=== PATIENT | female | born 1965 | race Caucasian/White ===

== ENCOUNTER 2018-02-02 17:11 | Inpatient (IN) | payer BC ==
--- NOTE | 2018-02-02 17:39 | PDOC ---
History of Present Illness - General History Source: Patient Exam Limitations: No Limitations <Mikey Ma - Last Filed: 02/02/18 17:51> <Subhash Myaa - Last Filed: 02/02/18 23:48> - General Chief Complaint: Chest Pain Stated Complaint: CHEST PAIN Time Seen by Provider: 02/02/18 17:39 - History of Present Illness Initial Comments: 02/02/18 17:51 The patient is a 52 year old female, with a significant past medical history of PTSD, GERD, Hernia, Right sided breast CA s/p lumpectomy, who presents to the ED complaining of chest pain since last night. She describes her chest pain as a stabbing sensation, 8/10 in severity. She denies any radiation or modifying factors. She also reports a dry cough and mild chills associated with her chief complaint. She notes that she took Tylenol today around 12pm. The patient denies shortness of breath, headache and dizziness. Denies fever, nausea, vomiting, diarrhea or constipation. Allergies: None Past surgical history: Right lumpectomy, hysterectomy Social History: No alcohol, tobacco or drug use reported (Mikey Ma) Past History <Mikey aM - Last Filed: 02/02/18 17:51> - Past Medical History Cancer: Yes (RT BREAST CA) CVA: No COPD: No DVT: No GI Disorders: Yes (GERD/HIATAL HERNIA) Psychiatric Problems: Yes (PSTD) - Immunization History Immunization Up to Date: No - Suicide/Smoking/Psychosocial Hx Smoking History: Unknown if ever smoked Have you smoked in the past 12 months: No Information on smoking cessation initiated: No Hx Alcohol Use: No Drug/Substance Use Hx: No Substance Use Type: None <Subhash Maya - Last Filed: 02/02/18 23:48> - Past Medical History Allergies/Adverse Reactions: Allergies Allergy/AdvReac Type Severity Reaction Status Date / Time No Known Allergies Allergy Verified 02/02/18 19:11 Home Medications: Ambulatory Orders NK [No Known Home Medication] 02/02/18 Review of Systems - Review of Systems Able to Perform ROS?: Yes <Mikey Ma - Last Filed: 02/02/18 17:51> <Subhash Maya - Last Filed: 02/02/18 23:48> - Review of Systems Comments:: 02/02/18 17:51 CONSTITUTIONAL: (+) Chills. No fever, no fatigue EYES: No visual changes ENT: No ear pain, no sore throat CARDIOVASCULAR: (+) Chest pain. No palpitations RESPIRATORY: (+) Cough. No SOB GI: No abdominal pain, no nausea, no vomiting, no constipation, no diarrhea GENITOURINARY: No dysuria, no frequency, no hematuria MUSKULOSKELETAL: No backpain, no joint pain, no myalgias SKIN: No rash NEURO: No headache (Mikey Ma) *Physical Exam <Mikey Ma - Last Filed: 02/02/18 17:51> <Subhash Maya - Last Filed: 02/02/18 23:48> - Vital Signs Last Vital Signs Temp Pulse Resp BP Pulse Ox 99.9 F H 80 18 129/76 100 02/02/18 17:20 02/02/18 18:54 02/02/18 18:54 02/02/18 18:54 02/02/18 18:54 - Physical Exam Comments: 02/02/18 17:51 CONSTITUTIONAL: Well-appearing; well-nourished; in no apparent distress HEAD: Normocephalic; atraumatic EYES: PERRL; EOM intact ENMT: External appears normal; normal oropharynx NECK: Supple; non-tender; no cervical lymphadenopathy CARD: Normal S1, S2; no murmurs, rubs, or gallops RESP: Normal chest excursion with respiration; breath sounds clear and equal bilaterally; no wheezes, rhonchi, or rales ABD: Soft, non-distended; non-tender; no palpable organomegaly, no palpable hernias EXT: Normal ROM in all four extremities; non-tender to palpation; distal pulses intact SKIN: Warm, dry, no rash NEURO: No focal neurological deficiencies. (Mikey Ma) Heart Score/ECG Review - History History: Slightly suspicious - Electrocardiogram EKG: Normal - Age Age: 45-65 - Risk Factors Based on the list above the patient has:: 1-2 risk factors - Troponin Troponin: </= normal limit - Score Heart Score - Total: 2 <Subhash aMya - Last Filed: 02/02/18 23:48> ED Treatment Course - LABORATORY CBC & Chemistry Diagram: 02/02/18 18:50 02/02/18 18:50 <Subhash Maya - Last Filed: 02/02/18 23:48> - ADDITIONAL ORDERS Additional order review: Laboratory Results 02/02/18 02/02/18 18:50 18:50 PT with INR 12.60 INR 1.12 H Sodium 141 Potassium 3.6 Chloride 102 Carbon Dioxide 32 Anion Gap 7 L BUN 15 Creatinine 0.9 Creat Clearance w eGFR > 60 Random Glucose 100 Calcium 9.2 Total Bilirubin 0.5 AST 16 ALT 28 Alkaline Phosphatase 63 Creatine Kinase 69 Troponin I < 0.02 Total Protein 8.2 Albumin 3.7 02/02/18 18:50 RBC 3.63 MCV 96.3 H MCHC 34.3 RDW 13.8 MPV 9.0 Neutrophils % 52.5 Lymphocytes % 33.9 Monocytes % 11.9 H Eosinophils % 1.5 Basophils % 0.2 - RADIOLOGY Radiology Studies Ordered: Category Date Time Status CHEST X-RAY PORTABLE* [RAD] Stat Radiology 02/02/18 17:52 Completed - Medications Given in the ED: ED Medications Discontinued Medications Generic Name Dose Route Start Last Admin Trade Name Freq PRN Reason Stop Dose Admin Al Hydroxide/Mg Hydroxide 30 ml 02/02/18 17:54 02/02/18 18:15 Mylanta Suspension - PO 02/02/18 17:55 30 ml ONCE ONE Administration Aspirin 162 mg 02/02/18 17:54 02/02/18 18:15 Asa - PO 02/02/18 17:55 162 mg ONCE ONE Administration Famotidine/Sodium Chloride 20 mg in 50 mls @ 100 mls/hr 02/02/18 17:54 18:53 Pepcid 20 Mg Premixed Ivpb - IVPB 02/02/18 18:23 100 mls/hr ONCE ONE Administration Nitroglycerin 0.4 mg 02/02/18 17:54 02/02/18 18:15 Nitrostat - SL 02/02/18 17:55 0.4 mg ONCE ONE Administration Nitroglycerin 1 inch 02/02/18 22:11 02/02/18 22:57 Nitro-Bid 2% Paste - TD 02/02/18 22:12 1 inch ONCE ONE Administration Medical Decision Making <Mikey Ma - Last Filed: 02/02/18 17:51> <Subhash Maya - Last Filed: 02/02/18 23:48> - Medical Decision Making 02/02/18 23:47 52-year-old female with history of breast CA in the past, presents with atypical chest pain. EKG shows no evidence of acute ischemia. First set of cardiac enzymes within normal limit. Heart score is noted to be 2. Given low probability for outpatient follow-up. Will place in observation for serial cardiac enzymes and cardiology consultation. (Subhash Maya) *DC/Admit/Observation/Transfer <Mikey Ma - Last Filed: 02/02/18 17:51> - Discharge Dispostion Decision to Admit order: Yes <Subhash Maya - Last Filed: 02/02/18 23:48> Diagnosis at time of Disposition: Chest pain Qualifiers: Chest pain type: unspecified Qualified Code(s): R07.9 - Chest pain, unspecified - Discharge Dispostion Condition at time of disposition: Fair - Attestations Scribe Attestion: 02/02/18 17:51 Documentation prepared by Mikey Ma, acting as medical registrar for Subhash Maya MD (Mikey Ma)
[2018-02-02] MEDS ORDERED: FAMOTIDINE 20 MG/50 ML IVPB 20 MG/50 ML MG IVPB ONE (17:54)
[2018-02-02] MEDS ORDERED: NITROGLYCERIN SUBLINGUAL 1/150 0.4 MG TAB SL ONE (17:54)
[2018-02-02] MEDS ORDERED: ASPIRIN 81 MG CHEWABLE TABLETS PO ONE (17:54)
[2018-02-02] MEDS ORDERED: MAG HYDROX/AL HYDROX/SIMETH -MYLANTA- ORAL SUSPENSION PO ONE (17:54)
[2018-02-02] MEDS ORDERED: MAG HYDROX/AL HYDROX/SIMETH 30 ML UNIT-DOSE CUP ONE (18:10)
[2018-02-02 19:18] LABS: INR 1.12 (0.83-1.09); PROTHROMBIN TIME (PATIENT) 12.6 SEC (9.7-13.0)
[2018-02-02 19:28] LABS: ALBUMIN 3.7 g/dl (3.4-5.0); ANION GAP 7 (8-16); BILIRUBIN,TOTAL 0.5 mg/dL (0.2-1.0); BLOOD UREA NITROGEN 15 mg/dL (7-18); CALCIUM 9.2 mg/dL (8.5-10.1); CHLORIDE 102 mmol/L (98-107); CO2 32 mmol/L (21-32); CREATININE 0.9 mg/dL (0.55-1.02); GLUCOSE,RANDOM 100 mg/dL (74-106); POTASSIUM 3.6 mmol/L (3.5-5.1); SGOT/AST 16 U/L (15-37); SGPT/ALT 28 U/L (12-78); SODIUM 141 mmol/L (136-145); TOT PROT 8.2 g/dl (6.4-8.2)
[2018-02-02 19:31] LABS: ALK PHOS 63 U/L (45-117)
[2018-02-02 19:46] LABS: BASO % 0.2 % (0-2.0); EOS % 1.5 % (0-4.5); HEMATOCRIT 34.9 % (32.4-45.2); LYMPH % 33.9 % (8-40); MCHC 34.3 g/dl (32.0-36.0); MEAN CELL VOLUME 96.3 fl (80-96); MONO % 11.9 % (3.8-10.2); NEUT % 52.5 % (42.8-82.8); PLATELET COUNT 242 K/MM3 (134-434); RBC 3.63 M/mm3 (3.60-5.2); RDW 13.8 % (11.6-15.6); WHITE BLOOD COUNT 6.9 K/mm3 (4.0-10.0)
--- NOTE | 2018-02-02 21:42 | CON.CARD ---
Consult Consult Specialty:: Cardiology Reason for Consultation:: cp - History of Present Illness History of Present Illness: The patient is a 52 year old female, with a significant past medical history of PTSD, GERD, Hernia, Right sided breast CA s/p lumpectomy, who presents to the ED complaining of chest pain since last night. She describes her chest pain as a stabbing sensation, 8/10 in severity. She denies any radiation or modifying factors. She also reports a dry cough and mild chills associated with her chief complaint. She notes that she took Tylenol today around 12pm. The patient denies shortness of breath, headache and dizziness. Denies fever, nausea, vomiting, diarrhea or constipation. Allergies: None Past surgical history: Right lumpectomy, hysterectomy Social History: No alcohol, tobacco or drug use reported (Mikey Ma) - History Source History Provided By: Patient, Medical Record - Alcohol/Substance Use Hx Alcohol Use: No - Smoking History Smoking history: Unknown if ever smoked Have you smoked in the past 12 months: No Home Medications - Allergies Allergies/Adverse Reactions: Allergies Allergy/AdvReac Type Severity Reaction Status Date / Time No Known Allergies Allergy Verified 02/02/18 19:11 - Home Medications Home Medications: Ambulatory Orders NK [No Known Home Medication] 02/02/18 Review of Systems - Review of Systems Constitutional: reports: No Symptoms Eyes: reports: No Symptoms HENT: reports: No Symptoms Neck: reports: No Symptoms Cardiovascular: reports: Chest Pain Gastrointestinal: reports: No Symptoms Genitourinary: reports: No Symptoms Breasts: reports: No Symptoms Reported Musculoskeletal: reports: No Symptoms Integumentary: reports: No Symptoms Neurological: reports: No Symptoms Endocrine: reports: No Symptoms Hematology/Lymphatic: reports: No Symptoms Psychiatric: reports: No Symptoms Vital Signs: Vital Signs Temperature 99.9 F H 02/02/18 17:20 Pulse Rate 80 02/02/18 18:54 Respiratory Rate 18 02/02/18 18:54 Blood Pressure 129/76 02/02/18 18:54 O2 Sat by Pulse Oximetry (%) 100 02/02/18 18:54 Constitutional: Yes: Well Nourished, No Distress, Calm Eyes: Yes: WNL, Conjunctiva Clear, EOM Intact HENT: Yes: WNL, Atraumatic, Normocephalic Neck: Yes: WNL, Supple, Trachea Midline Respiratory: Yes: WNL, Regular, CTA Bilaterally Gastrointestinal: Yes: WNL, Normal Bowel Sounds Renal/: Yes: WNL Cardiovascular: Yes: WNL, Regular Rate and Rhythm Musculoskeletal: Yes: WNL Extremities: Yes: WNL Integumentary: Yes: WNL Neurological: Yes: WNL, Alert, Oriented ...Motor Strength: WNL Psychiatric: Yes: WNL, Alert, Oriented - Other Data Labs, Other Data: CBC, BMP 02/02/18 18:50 02/02/18 18:50 INR, PTT INR 1.12 (0.83-1.09) H 02/02/18 18:50 Troponin, BNP 02/02/18 18:50 Troponin I < 0.02 Troponin, BNP 02/02/18 18:50 Troponin I < 0.02 Imaging - Results Chest X-ray: Image Reviewed (cm increased markings ?weak inspiration) EKG: Image Reviewed (nsr ? old ant septal HI) Problem List - Problems (1) Atelectasis Code(s): J98.11 - ATELECTASIS (2) Atypical chest pain Code(s): R07.89 - OTHER CHEST PAIN (3) Chest pain Code(s): R07.9 - CHEST PAIN, UNSPECIFIED Qualifiers: Chest pain type: unspecified Qualified Code(s): R07.9 - Chest pain, unspecified Assessment/Plan Atypical Chest Pain Bibasilar Atelectasis h/o Breast Ca GERD Hiatal Hernia r/o mi echo nl EST treadmill stress test when stable
[2018-02-02] MEDS ORDERED: NITROGLYCERIN 2% OINTMENT - 1GM PACKET TD ONE ×2 (22:11→22:38)
--- NOTE | 2018-02-03 00:16 | HP ---
CHIEF COMPLAINT: chest pain PCP: HISTORY OF PRESENT ILLNESS: 52 yo female with PMH Hiatal hernia, GERD, R breast cancer s/p lumpectomy followed by R radical mastectomy and tram flap, presented to the ED with 1 day of stabbing chest pain which radiates up into her neck on the right. she also endorses chills, and recent URI symptoms including cough. ER course was notable for: (1) Trop neg. ECG shows no acute infarct (2) CXR with central markings, bibasilar scarring vs atelectasis, unspecified density in RUL (3) Cardiology consulted Recent Travel: none PAST MEDICAL HISTORY: Hiatal hernia GERD R breast cancer - remission for 19 years PAST SURGICAL HISTORY: R lumpectomy R Mastectomy R Tram-flap Social History: Smoking: none Alcohol: none Drugs: none Family History: Allergies No Known Allergies Allergy (Verified 02/02/18 19:11) HOME MEDICATIONS: Home Medications Medication Instructions Recorded NK [No Known Home Medication] 02/02/18 REVIEW OF SYSTEMS CONSTITUTIONAL: chills Absent: fever, , diaphoresis, generalized weakness, malaise, loss of appetite, weight change HEENT: Absent: rhinorrhea, nasal congestion, throat pain, throat swelling, difficulty swallowing, mouth swelling, ear pain, eye pain, visual changes CARDIOVASCULAR: chest pain, Absent: syncope, palpitations, irregular heart rate, lightheadedness, peripheral edema RESPIRATORY: cough, shortness of breath Absent: , dyspnea with exertion, orthopnea, wheezing, stridor, hemoptysis GASTROINTESTINAL: Absent: abdominal pain, abdominal distension, nausea, vomiting, diarrhea, constipation, melena, hematochezia GENITOURINARY: Absent: dysuria, frequency, urgency, hesitancy, hematuria, flank pain, genital pain MUSCULOSKELETAL: Absent: myalgia, arthralgia, joint swelling, back pain, neck pain SKIN: Absent: rash, itching, pallor HEMATOLOGIC/IMMUNOLOGIC: Absent: easy bleeding, easy bruising, lymphadenopathy, frequent infections ENDOCRINE: Absent: unexplained weight gain, unexplained weight loss, heat intolerance, cold intolerance NEUROLOGIC: Absent: headache, focal weakness or paresthesias, dizziness, unsteady gait, seizure, mental status changes, bladder or bowel incontinence PSYCHIATRIC: Absent: anxiety, depression, suicidal or homicidal ideation, hallucinations. PHYSICAL EXAMINATION Vital Signs - 24 hr 02/02/18 02/02/1802/02/18 17:20 18:15 18:54 Temperature 99.9 F H Pulse Rate 82 Pulse Rate [ 82 80 Apical] Respiratory 17 16 18 Rate Blood Pressure 128/69 Blood Pressure 137/84 129/76 [Left Arm] O2 Sat by Pulse 97 100 100 Oximetry (%) GENERAL: Awake, alert, and fully oriented, in no acute distress. HEAD: Normal with no signs of trauma. EYES: PERRL, EOMI, no scleral icterus EARS, NOSE, THROAT: oropharynx clear without exudates. Moist mucous membranes. NECK: Normal range of motion, supple without lymphadenopathy, JVD, or masses. LUNGS: CTA b/l no rhonchi or crackles HEART: RRR no murmurs normal S1S2 ABDOMEN: soft nontender, normoactive bowel sounds MUSCULOSKELETAL: Chest pain is not reproducible on exam, though pt still complaining of pain UPPER EXTREMITIES: warm, well-perfused. No cyanosis. No clubbing. No peripheral edema. LOWER EXTREMITIES: warm, well-perfused. No calf tenderness. No peripheral edema. NEUROLOGICAL: Cranial nerves II-XII grossly intact. Normal speech. PSYCHIATRIC: Cooperative. Good eye contact. Appropriate mood and affect. SKIN: Warm, dry, normal turgor, no rashes or lesions noted, normal capillary refill. Laboratory Results - last 24 hr 02/02/18 02/02/18 02/02/18 18:50 18:50 18:50 WBC 6.9 RBC 3.63 Hgb 12.0 Hct 34.9 MCV 96.3 H MCH 33.0 MCHC 34.3 RDW 13.8 Plt Count 242 MPV 9.0 Absolute Neuts (auto) 3.6 Neutrophils % 52.5 Lymphocytes % 33.9 Monocytes % 11.9 H Eosinophils % 1.5 Basophils % 0.2 Nucleated RBC % 0 PT with INR 12.60 INR 1.12 H Sodium 141 Potassium 3.6 Chloride 102 Carbon Dioxide 32 Anion Gap 7 L BUN 15 Creatinine 0.9 Creat Clearance w eGFR > 60 Random Glucose 100 Calcium 9.2 Total Bilirubin 0.5 AST 16 ALT 28 Alkaline Phosphatase 63 Creatine Kinase 69 Troponin I < 0.02 Total Protein 8.2 Albumin 3.7 ASSESSMENT/PLAN: 52 yo female with PMH right breast CA s/p mastectomy (remission for 19 years) with Hiatal hernia and GERD placed into observation for r/o Cardiac event, GI consult for Hiatal hernia. Chest pain -Unlikely cardiac in nature -Could possibly be severe GERD sx with hx of hiatal hernia -Troponins negative -ECG noted, no acute infarcts -Observe with cardiac monitoring -Echo ordered -Cardiology consult ordered GERD/Hiatal Hernia -known hiatal hernia, pt considering repair -Diet modifications have not improved GERD symptoms -Pt not on PPI at home -Protonix 40 mg PO Daily -GI consult ordered Unspecified pulmonary density RUL -no smoking hx -Ddx could include pneumonia vs mass -Chest CT w/o contrast -Pulmonary consult ordered for [facility] follow up -Awaiting CT, if appears to be pneumonia will start Abx DVT Prophylaxis -Heparin 5000 units SQ TID FEN -Fluids: none -Electrolytes: K 3.6, repleted, repeat BMP in AM -Nutrition: Regular diet Disposition Observation Visit type - Emergency Visit Emergency Visit: Yes ED Registration Date: 02/02/18 Care time: The patient presented to the Emergency Department on the above date and was hospitalized for further evaluation of their emergent condition. - New Patient This patient is new to me today: Yes Date on this admission: 02/04/18 - Critical Care Critical Care patient: No Hospitalist Screening - Colonoscopy Questionnaire Colonoscopy Questionnaire: Colonoscopy Questionnaire - Patient: 50 - 75 years old and never had a screening colonoscopy: No History of colon or rectal polyps, or CA: No History of IBD, Crohn's disease or UC: No History of abdominal radiation therapy as a child: No - Relative: 1 with colon or rectal CA, or polyps at age 60 or younger: No Colon or rectal CA diagnosed at age 45 or younger: No Multiple relatives with colon or rectal CA: No - Outcome: Screening Result: Negative Screen
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
[2018-02-03] MEDS ORDERED: POTASSIUM CHLORIDE TABS 20 MEQ TABLET.ER (FP) PO ONE ×2 (01:22→02:07)
[2018-02-03 05:23] VITALS: BMI 34.3
[2018-02-03 06:43] LABS: HEMATOCRIT 30.8 % (32.4-45.2); HEMOGLOBIN 10.7 GM/dL (10.7-15.3); MCH 34.1 pg (25.7-33.7); MCHC 34.7 g/dl (32.0-36.0); MEAN CELL VOLUME 98.3 fl (80-96); MEAN PLT VOLUME 8.5 fl (7.5-11.1); PLATELET COUNT 194 K/MM3 (134-434); RBC 3.13 M/mm3 (3.60-5.2); RDW 14.2 % (11.6-15.6); WHITE BLOOD COUNT 5.7 K/mm3 (4.0-10.0)
[2018-02-03] MEDS: HEPARIN NA (PORCINE) 5,000 UNITS/ML 1ML VIAL SQ SCH ×3 (06:51→21:29)
[2018-02-03 07:11] LABS: ANION GAP 7 (8-16); BLOOD UREA NITROGEN 14 mg/dL (7-18); CHLORIDE 106 mmol/L (98-107); CO2 28 mmol/L (21-32); CREATININE 0.9 mg/dL (0.55-1.02); GLUCOSE,RANDOM 101 mg/dL (74-106); MAGNESIUM 2.4 mg/dL (1.8-2.4); PHOSPHOROUS 3.2 mg/dL (2.5-4.9); POTASSIUM 4.3 mmol/L (3.5-5.1); SODIUM 141 mmol/L (136-145)
--- NOTE | 2018-02-03 08:24 | PN ---
Teaching Attending Note Name of Resident: Hafsa Vitale ATTENDING PHYSICIAN STATEMENT I saw and evaluated the patient. I reviewed the resident's note and discussed the case with the resident. I agree with the resident's findings and plan as documented. SUBJECTIVE: The patient is a 52 year old female, with a significant past medical history of PTSD, GERD, Hernia, Right sided breast CA s/p lumpectomy, who presents to the ED complaining of chest pain 8/10 in severity , wiith stubbing sensations since last night. OBJECTIVE: Vital Signs Temperature 98.1 F 02/03/18 06:32 Pulse Rate 75 02/03/18 06:32 Respiratory Rate 18 02/03/18 06:32 Blood Pressure 113/69 02/03/18 06:32 O2 Sat by Pulse Oximetry (%) 95 02/03/18 03:30 CBCD WBC 5.7 K/mm3 (4.0-10.0) 02/03/18 05:30 RBC 3.13 M/mm3 (3.60-5.2) L 02/03/18 05:30 Hgb 10.7 GM/dL (10.7-15.3) 02/03/18 05:30 Hct 30.8 % (32.4-45.2) L 02/03/18 05:30 MCV 98.3 fl (80-96) H 02/03/18 05:30 MCHC 34.7 g/dl (32.0-36.0) 02/03/18 05:30 RDW 14.2 % (11.6-15.6) 02/03/18 05:30 Plt Count 194 K/MM3 (134-434) 02/03/18 05:30 MPV 8.5 fl (7.5-11.1) 02/03/18 05:30 CMP Sodium 141 mmol/L (136-145) 02/03/18 05:30 Potassium 4.3 mmol/L (3.5-5.1) 02/03/18 05:30 Chloride 106 mmol/L (98-107) 02/03/18 05:30 Carbon Dioxide 28 mmol/L (21-32) 02/03/18 05:30 Anion Gap 7 (8-16) L 02/03/18 05:30 BUN 14 mg/dL (7-18) 02/03/18 05:30 Creatinine 0.9 mg/dL (0.55-1.02) 02/03/18 05:30 Creat Clearance w eGFR > 60 (>60) 02/03/18 05:30 Random Glucose 101 mg/dL (74-106) 02/03/18 05:30 Calcium 9.0 mg/dL (8.5-10.1) 02/03/18 05:30 Total Bilirubin 0.5 mg/dL (0.2-1.0) 02/02/18 18:50 AST 16 U/L (15-37) 02/02/18 18:50 ALT 28 U/L (12-78) 02/02/18 18:50 Alkaline Phosphatase 63 U/L (45-117) 02/02/18 18:50 Total Protein 8.2 g/dl (6.4-8.2) 02/02/18 18:50 Albumin 3.7 g/dl (3.4-5.0) 02/02/18 18:50 CARDIAC ENZYMES Creatine Kinase 69 IU/L (26-192) 02/02/18 18:50 Troponin I < 0.02 ng/ml (0.00-0.05) 02/02/18 18:50 Current Medications Generic Name Dose Route Start Last Admin Trade Name Freq PRN Reason Stop Dose Admin Heparin Sodium (Porcine) 5,000 unit 02/03/18 06:00 02/03/18 06:51 Heparin - SQ 5,000 unit TID CARLI Administration Pantoprazole Sodium 40 mg 02/03/18 10:00 Protonix - PO DAILY [facility] Home Medications Medication Instructions Recorded NK [No Known Home Medication] 02/02/18 Laboratory Tests 02/02/18 02/03/18 18:50 05:30 Troponin I < 0.02 < 0.02 Chest: Good effort. Clear to auscultation and percussion. Heart: Regular. No S3, rub or murmur Rest of PE per resident's note ASSESSMENT AND PLAN: Patient is a 52 year old woman with PMHx PTSD, GERD, Hernia, Right sided breast CA s/p mastectomy (radio and chemotherapy), who presents to the ER complaining of chest pain for 1 day. # Acute Chest pain ACS was rulled out by CE q6x 2 were negative, cardio consult appreciated, EKG, echo ordered. will wait for echo result DVT prophylaxis - Heparin 5000u sq tid. Advance directives - Full code
[2018-02-03] MEDS: PANTOPRAZOLE 40 MG TABLET (FP) PO SCH (10:15)
--- NOTE | 2018-02-03 10:17 | PN ---
Progress Note, Physician History of Present Illness: The patient is a 52 year old female, with a significant past medical history of PTSD, GERD, Hernia, Right sided breast CA s/p lumpectomy, who presents to the ED complaining of chest pain since last night. She describes her chest pain as a stabbing sensation, 8/10 in severity. She denies any radiation or modifying factors. She also reports a dry cough and mild chills associated with her chief complaint. She notes that she took Tylenol today around 12pm. - Current Medication List Current Medications: Active Medications Heparin Sodium (Porcine) (Heparin -) 5,000 unit SQ TID [facility] Last Admin: 02/03/18 06:51 Dose: 5,000 unit Pantoprazole Sodium (Protonix -) 40 mg PO DAILY [facility] - Objective Vital Signs: Vital Signs Temperature 98.2 F 02/03/18 10:00 Pulse Rate 76 02/03/18 10:00 Respiratory Rate 14 02/03/18 10:00 Blood Pressure 126/60 02/03/18 10:00 O2 Sat by Pulse Oximetry (%) 95 02/03/18 03:30 Labs: CBC, BMP 02/03/18 05:30 02/03/18 05:30 INR, PTT INR 1.12 (0.83-1.09) H 02/02/18 18:50 Problem List - Problems (1) Atypical chest pain Code(s): R07.89 - OTHER CHEST PAIN
--- NOTE | 2018-02-03 10:27 | CON.GI ---
Consult Consult Specialty:: GI Reason for Consultation:: Atypical chest pain, GERD - History of Present Illness History of Present Illness: Chart reviewed. Events noted. per initial intake: Patient is a 52 year old woman with a past medical history of PTSD, GERD, Hernia, Right sided breast CA s/p mastectomy (radio and chemotherapy), who presents to the ER complaining of chest pain for 1 day. She describes her chest pain as a stabbing sensation, located in right parasternal area and 8/10 in severity. She denies any radiation or modifying factors but is exposed to second hand smoke. She also reports a dry cough, SOB, chills and pleurisy. No family history of premature CAD. Normal CBC, HGB, Liver chemistry, bili, alp, albumin. Normal BUN. Macrocytosis CT chest - negative for PE. "cannot rule out infiltrate". Pulmonary consult noted. At the timeofthis exam, the pt appears confortable. Ambulating. Reports no dysphagia, odynophagia, dyspepsia, fever, jaundice, melena, hematochezia, hematemesis, changes in stool caliper. Had EGD in 2009, cannot recall the findings, but reports no history of PUD, esopha gitis, or duodenitis. - History Source History Provided By: Patient, Medical Record - Alcohol/Substance Use Hx Alcohol Use: No - Smoking History Smoking history: Unknown if ever smoked Have you smoked in the past 12 months: No Home Medications - Allergies Allergies/Adverse Reactions: Allergies Allergy/AdvReac Type Severity Reaction Status Date / Time No Known Allergies Allergy Verified 02/02/18 19:11 - Home Medications Home Medications: Ambulatory Orders NK [No Known Home Medication] 02/02/18 Family Disease History - Family Disease History Family History: Unremarkable Review of Systems Findings/Remarks: as per HPI, ED, H&P Physical Exam-GI Vital Signs: Vital Signs Temperature 98.2 F 02/03/18 10:00 Pulse Rate 76 02/03/18 10:00 Respiratory Rate 14 02/03/18 10:00 Blood Pressure 126/60 02/03/18 10:00 O2 Sat by Pulse Oximetry (%) 95 02/03/18 03:30 Constitutional: Yes: Well Nourished, No Distress, Calm Eyes: Yes: Conjunctiva Clear HENT: Yes: Atraumatic Neck: Yes: Supple Cardiovascular: Yes: Regular Rate and Rhythm Respiratory: Yes: Regular Gastrointestinal Inspection: No: Ascites, Distention ...Auscultate: Yes: Normoactive Bowel Sounds ...Palpate: Yes: Soft. No: Firm/Rigid, Guarding, Mass, Tenderness, Tenderness, Epigastium, Tenderness, Rebound Neurological: Yes: Alert, Oriented Labs: CBC, BMP 02/03/18 05:30 02/03/18 05:30 INR, PTT INR 1.12 (0.83-1.09) H 02/02/18 18:50 Laboratory Last Values WBC 5.7 K/mm3 (4.0-10.0) 02/03/18 05:30 RBC 3.13 M/mm3 (3.60-5.2) L 02/03/18 05:30 Hgb 10.7 GM/dL (10.7-15.3) 02/03/18 05:30 Hct 30.8 % (32.4-45.2) L 02/03/18 05:30 MCV 98.3 fl (80-96) H 02/03/18 05:30 MCH 34.1 pg (25.7-33.7) H 02/03/18 05:30 MCHC 34.7 g/dl (32.0-36.0) 02/03/18 05:30 RDW 14.2 % (11.6-15.6) 02/03/18 05:30 Plt Count 194 K/MM3 (134-434) 02/03/18 05:30 MPV 8.5 fl (7.5-11.1) 02/03/18 05:30 Absolute Neuts (auto) 3.6 # 02/02/18 18:50 Neutrophils % 52.5 % (42.8-82.8) 02/02/18 18:50 Lymphocytes % 33.9 % (8-40) 02/02/18 18:50 Monocytes % 11.9 % (3.8-10.2) H 02/02/18 18:50 Eosinophils % 1.5 % (0-4.5) 02/02/18 18:50 Basophils % 0.2 % (0-2.0) 02/02/18 18:50 Nucleated RBC % 0 % (0-0) 02/02/18 18:50 PT with INR 12.60 SEC (9.7-13.0) 02/02/18 18:50 INR 1.12 (0.83-1.09) H 02/02/18 18:50 Sodium 141 mmol/L (136-145) 02/03/18 05:30 Potassium 4.3 mmol/L (3.5-5.1) 02/03/18 05:30 Chloride 106 mmol/L (98-107) 02/03/18 05:30 Carbon Dioxide 28 mmol/L (21-32) 02/03/18 05:30 Anion Gap 7 (8-16) L 02/03/18 05:30 BUN 14 mg/dL (7-18) 02/03/18 05:30 Creatinine 0.9 mg/dL (0.55-1.02) 02/03/18 05:30 Creat Clearance w eGFR > 60 (>60) 02/03/18 05:30 Random Glucose 101 mg/dL (74-106) 02/03/18 05:30 Calcium 9.0 mg/dL (8.5-10.1) 02/03/18 05:30 Phosphorus 3.2 mg/dL (2.5-4.9) 02/03/18 05:30 Magnesium 2.4 mg/dL (1.8-2.4) 02/03/18 05:30 Total Bilirubin 0.5 mg/dL (0.2-1.0) 02/02/18 18:50 AST 16 U/L (15-37) 02/02/18 18:50 ALT 28 U/L (12-78) 02/02/18 18:50 Alkaline Phosphatase 63 U/L (45-117) 02/02/18 18:50 Creatine Kinase 69 IU/L (26-192) 02/02/18 18:50 Troponin I < 0.02 ng/ml (0.00-0.05) 02/03/18 05:30 Total Protein 8.2 g/dl (6.4-8.2) 02/02/18 18:50 Albumin 3.7 g/dl (3.4-5.0) 02/02/18 18:50 Triglycerides Cancelled 02/03/18 10:55 Cholesterol Cancelled 02/03/18 10:55 Total LDL Cholesterol Cancelled 02/03/18 10:55 HDL Cholesterol Cancelled 08/02/18 10:55 TSH Cancelled 02/03/18 10:55 Imaging - Results X-ray: Report Reviewed Cat Scan: Report Reviewed (ct chest) Problem List - Problems (1) Atypical chest pain Code(s): R07.89 - OTHER CHEST PAIN Assessment/Plan A 52F with atypical chest pain which may be related to GERD, gastritis, PUD. Recommnd PPI PO QAM. Stop NSAIDs. US liver, EGD. Screening colonoscopy can be done as OP. Discussed with the patient.
[2018-02-03 11:22] LABS: CHOLESTEROL 145 mg/dL (50-200); TRIGLYCERIDES 146 mg/dL (35-160)
[2018-02-03 11:29] LABS: HDL CHOLESTEROL 37 mg/dL (40-60)
--- NOTE | 2018-02-03 11:56 | CON.PULM ---
Consult Consult Specialty:: PULMONARY Referred by:: Dr. Holt Reason for Consultation:: abnormal CXR - History of Present Illness Chief Complaint: chest pain History of Present Illness: 52yo female with h/o GERD, hiatal hernia, right breast ca s/p mastectomy who was admitted with anterior right parasternal chest pain x 1 day. States pain started at rest, described as sharp, stabbing nonradiating. Reports worse pain with deep inspiration and certain positions. No fevers, but with some chills. + nonproductive cough without wheezing. States the pain prohibits her from taking deep breaths. She denies any lung problems in the past, is a never smoker. Works with [employer], mostly office based and street work. Admission CXR showing possible RUL density but CT chest did not show any RUL abnormality but with bibasilar atelectasis. - History Source History Provided By: Patient, Medical Record - Past Medical History Gastrointestinal: Yes: GERD, Hiatal Hernia Heme/Onc: Yes: Cancer (right breast) - Past Surgical History Past Surgical History: Yes: Mastectomy (right) - Alcohol/Substance Use Hx Alcohol Use: No - Smoking History Smoking history: Unknown if ever smoked Have you smoked in the past 12 months: No Home Medications - Allergies Allergies/Adverse Reactions: Allergies Allergy/AdvReac Type Severity Reaction Status Date / Time No Known Allergies Allergy Verified 02/02/18 19:11 - Home Medications Home Medications: Ambulatory Orders NK [No Known Home Medication] 02/02/18 Review of Systems - Review of Systems Constitutional: reports: Chills, Weakness. denies: Fever Eyes: denies: Recent Change in Vision HENT: denies: Nasal Congestion, Throat Pain Neck: denies: Stiffness, Tenderness Cardiovascular: reports: Chest Pain, Shortness of Breath. denies: Edema, Palpitations Respiratory: reports: Cough, SOB. denies: Hemoptysis, Wheezing Gastrointestinal: denies: Abdominal Pain, Nausea, Vomiting Genitourinary: denies: Dysuria, Hematuria Neurological: denies: Dizziness, Headache Endocrine: denies: Unexplained Weight Loss Psychiatric: reports: Anxiety Physical Exam Vital Sings: Vital Signs Temperature 98.2 F 02/03/18 10:00 Pulse Rate 76 02/03/18 10:00 Respiratory Rate 14 02/03/18 10:00 Blood Pressure 126/60 02/03/18 10:00 O2 Sat by Pulse Oximetry (%) 95 02/03/18 03:30 Constitutional: Yes: Calm Eyes: Yes: Conjunctiva Clear, EOM Intact HENT: Yes: Atraumatic, Normocephalic Neck: Yes: Supple, Trachea Midline Cardiovascular: Yes: Regular Rate and Rhythm Respiratory: Yes: Regular, CTA Bilaterally ...Clubbing: No Gastrointestinal: Yes: Normal Bowel Sounds, Soft. No: Tenderness Edema: No Neurological: Yes: Alert, Oriented Labs: CBC, BMP 02/03/18 05:30 02/03/18 05:30 Imaging - Results Chest X-ray: Report Reviewed, Image Reviewed Cat Scan: Report Reviewed, Image Reviewed (bibasilar atelectasis) Problem List - Problems (1) Atypical chest pain Code(s): R07.89 - OTHER CHEST PAIN (2) Atelectasis Code(s): J98.11 - ATELECTASIS Assessment/Plan Atypical Chest Pain Bibasilar Atelectasis h/o Breast Ca GERD Hiatal Hernia - CXR findings not seen on CT chest - bibasilar atelectasis likely from splinting from chest pain - would start NSAIDs for chest pain - ?costochondritis - incentive spirometry - DVT prophylaxis Thank you for this consult Aris Loomis MD
[2018-02-03] MEDS ORDERED: NAPROXEN 500 MG TABLET (FP) PO SCH (12:00)
[2018-02-03] MEDS ORDERED: NAPROXEN 500 MG TABLET (FP) PO PRN (12:02)
--- NOTE | 2018-02-03 12:45 | EKG ---
Test Reason : Blood Pressure : / mmHG Vent. Rate : 080 BPM Atrial Rate : 080 BPM P-R Int : 180 ms QRS Dur : 086 ms QT Int : 376 ms P-R-T Axes : 030 -25 009 degrees QTc Int : 433 ms NORMAL SINUS RHYTHM POSSIBLE ANTERIOR INFARCT (CITED ON OR BEFORE 02-FEB-2018) ABNORMAL ECG WHEN COMPARED WITH ECG OF 02-FEB-2018 22:26, NO SIGNIFICANT CHANGE WAS FOUND Confirmed by JOAQUÍN MOORE, ELIDA ([id number]) on 02/03/2018 12:44:59 PM Referred By: LOUIS STORY Confirmed By:ELIDA YANES MD
--- NOTE | 2018-02-03 12:48 | EKG ---
Test Reason : Blood Pressure : / mmHG Vent. Rate : 085 BPM Atrial Rate : 085 BPM P-R Int : 176 ms QRS Dur : 088 ms QT Int : 374 ms P-R-T Axes : 018 -25 011 degrees QTc Int : 445 ms NORMAL SINUS RHYTHM POSSIBLE LEFT ATRIAL ENLARGEMENT LEFT VENTRICULAR HYPERTROPHY ABNORMAL ECG NO PREVIOUS ECGS AVAILABLE Confirmed by JOAQUÍN MOORE, ELIDA ([id number]) on 02/03/2018 12:47:57 PM Referred By: Confirmed By:ELIDA YANES MD
--- NOTE | 2018-02-03 12:48 | EKG ---
Test Reason : Blood Pressure : / mmHG Vent. Rate : 076 BPM Atrial Rate : 076 BPM P-R Int : 182 ms QRS Dur : 086 ms QT Int : 390 ms P-R-T Axes : 026 -24 006 degrees QTc Int : 438 ms NORMAL SINUS RHYTHM POSSIBLE LEFT ATRIAL ENLARGEMENT POSSIBLE ANTERIOR INFARCT , AGE UNDETERMINED ABNORMAL ECG WHEN COMPARED WITH ECG OF 02-FEB-2018 17:16, NO SIGNIFICANT CHANGE WAS FOUND Confirmed by JOAQUÍN MOORE, ELIDA ([id number]) on 02/03/2018 12:48:00 PM Referred By: Confirmed By:ELIDA YANES MD
--- NOTE | 2018-02-03 13:52 | ECHO ---
Name: PATTIE ESPINOZA Exam:Adult Echocardiogram Study Date: 02/03/2018 09:06 AM Age: 52 yrs Reason For Study: CP Height: 60 in Weight: 170 lb BSA: 1.7 m2 MMode/2D Measurements & Calculations IVSd: 1.1 cm Ao root diam: 3.5 cm LVIDd: 4.7 cm LA dimension: 3.2 cm LVIDs: 3.3 cm LVPWd: 0.86 cm EDV(Teich): 103.1 ml ESV(Teich): 44.9 ml Doppler Measurements & Calculations MV E max patricia: 53.8 cm/sec Ao V2 max: 130.6 cm/sec MV A max patricia: 79.0 cm/sec Ao max P.8 mmHg MV E/A: 0.68 AI P1/2t: 538.6 msec MV dec time: 0.19 sec AI max patricia: 370.4 cm/sec LV V1 max P.0 mmHg AI max P.2 mmHg LV V1 max: 86.4 cm/sec AI dec slope: 201.4 cm/sec2 Med Peak E' Patricia: 6.7 cm/sec Med E/e': 8.0 Lat Peak E' Patricia: 8.9 cm/sec Lat E/e': 6.1 Procedure A complete two-dimensional transthoracic echocardiogram was performed (2D, M-mode, Doppler and color flow Doppler). Left Ventricle The left ventricular size, thickness and function are normal. The left ventricular ejection fraction is normal. Ejection Fraction = 60-65%. No regional wall motion abnormalities noted. Right Ventricle The right ventricle is normal in size and function. Atria Normal left and right atrial size and function. Mitral Valve There is no mitral regurgitation noted. Tricuspid Valve No tricuspid regurgitation. There was insufficient TR detected to calculate RV systolic pressure. Aortic Valve The aortic valve is trileaflet. No hemodynamically significant valvular aortic stenosis. Mild aortic regurgitation. Pulmonic Valve There is no pulmonic valvular regurgitation. Great Vessels The aortic root is normal size. Pericardium/Pleura There is no pericardial effusion. Interpretation Summary The left ventricular size, thickness and function are normal. The right ventricle is normal in size and function. Mild aortic regurgitation. MD Vivek Osorio 02/03/2018 01:52 PM
--- NOTE | 2018-02-03 16:33 | PN ---
Physical Exam: SUBJECTIVE: Patient seen and examined at bedside. Pt still complaints of sharp chest pain but much improved from yesterday. Denies f/c, n/v, mcclellan, vision changes. OBJECTIVE: Vital Signs Period Temp Pulse Resp BP Sys/Arroyo Pulse Ox Last 24 Hr 98.1 F-99.9 F 75-89 14-19 113-137/60-84 95-100 GENERAL: Awake, alert, and fully oriented, in no acute distress. HEAD: Normal with no signs of trauma. EYES: PERRL, EOMI, no scleral icterus EARS, NOSE, THROAT: oropharynx clear without exudates. Moist mucous membranes. NECK: Normal range of motion, supple without lymphadenopathy, JVD, or masses. LUNGS: CTA b/l no rhonchi or crackles. HEART: RRR no murmurs normal S1S2. Reproducible chest pain w/ no radiation. ABDOMEN: Soft nontender, normoactive bowel sounds. MUSCULOSKELETAL: Chest pain is not reproducible on exam, though pt still complaining of pain UPPER EXTREMITIES: warm, well-perfused. No cyanosis. No clubbing. No peripheral edema. 5/5 muscle strength b/l, LOWER EXTREMITIES: warm, well-perfused. No calf tenderness. No peripheral edema. 5/5 muscle strenght b/l. NEUROLOGICAL: Cranial nerves II-XII grossly intact. Normal speech. PSYCHIATRIC: Cooperative. Good eye contact. Appropriate mood and affect. SKIN: Warm, dry, normal turgor, no rashes or lesions noted, normal capillary refill. Laboratory Results - last 24 hr 02/02/18 02/02/18 02/02/18 18:50 18:50 18:50 WBC 6.9 RBC 3.63 Hgb 12.0 Hct 34.9 MCV 96.3 H MCH 33.0 MCHC 34.3 RDW 13.8 Plt Count 242 MPV 9.0 Absolute Neuts (auto) 3.6 Neutrophils % 52.5 Lymphocytes % 33.9 Monocytes % 11.9 H Eosinophils % 1.5 Basophils % 0.2 Nucleated RBC % 0 PT with INR 12.60 INR 1.12 H Sodium 141 Potassium 3.6 Chloride 102 Carbon Dioxide 32 Anion Gap 7 L BUN 15 Creatinine 0.9 Creat Clearance w eGFR > 60 Random Glucose 100 Calcium 9.2 Phosphorus Magnesium Total Bilirubin 0.5 AST 16 ALT 28 Alkaline Phosphatase 63 Creatine Kinase 69 Troponin I < 0.02 Total Protein 8.2 Albumin 3.7 Triglycerides Cholesterol Total LDL Cholesterol HDL Cholesterol TSH 02/03/18 02/03/18 02/03/18 05:30 05:30 10:55 WBC 5.7 RBC 3.13 L Hgb 10.7 Hct 30.8 L MCV 98.3 H MCH 34.1 H MCHC 34.7 RDW 14.2 Plt Count 194 MPV 8.5 Absolute Neuts (auto) Neutrophils % Lymphocytes % Monocytes % Eosinophils % Basophils % Nucleated RBC % PT with INR INR Sodium 141 Potassium 4.3 Chloride 106 Carbon Dioxide 28 Anion Gap 7 L BUN 14 Creatinine 0.9 Creat Clearance w eGFR > 60 Random Glucose 101 Calcium 9.0 Phosphorus 3.2 Magnesium 2.4 Total Bilirubin AST ALT Alkaline Phosphatase Creatine Kinase Troponin I < 0.02 Total Protein Albumin Triglycerides 146 Cancelled Cholesterol 145 Cancelled Total LDL Cholesterol 88 Cancelled HDL Cholesterol 37 L Cancelled TSH 1.96 Cancelled 02/03/18 10:55 WBC RBC Hgb Hct MCV MCH MCHC RDW Plt Count MPV Absolute Neuts (auto) Neutrophils % Lymphocytes % Monocytes % Eosinophils % Basophils % Nucleated RBC % PT with INR INR Sodium Potassium Chloride Carbon Dioxide Anion Gap BUN Creatinine Creat Clearance w eGFR Random Glucose Calcium Phosphorus Magnesium Total Bilirubin AST ALT Alkaline Phosphatase Creatine Kinase Troponin I Cancelled Total Protein Albumin Triglycerides Cholesterol Total LDL Cholesterol HDL Cholesterol TSH Active Medications Generic Name Dose Route Start Last Admin Trade Name Freq PRN Reason Stop Dose Admin Heparin Sodium (Porcine) 5,000 unit 02/03/18 06:00 02/03/18 14:16 Heparin - SQ 5,000 unit TID CARLI Administration Naproxen 500 mg 02/03/18 12:02 Naprosyn - PO BID PRN PAIN LEVEL 1-5 Pantoprazole Sodium 40 mg 02/03/18 10:00 02/03/18 10:15 Protonix - PO 40 mg DAILY CARLI Administration IMAGING: ECG: NSR. Possible anterior infarct. When compared with ECG of 02/02/18, no significant change was found. CT Chest: No evidence of pulm embolus within main pulm artery and its proximal branches, b/l. Bibasal atelectatic changes. Cannot r/o superimposed infiltrate. Correlate clinically for f/u. small hiatus hernia. ECHO: LV size, thickness, fxn are normal. RV is normal in size and fxn. Mild AR. ASSESSMENT/PLAN: 52F with PMH right breast CA s/p mastectomy (remission for 19 years) with hiatal hernia and GERD admitted for obs to r/o cardiac event vs. GI etiology. #Chest pain unlikely cardiac r/o GERD or hiatal hernia; improved since admission. -Unlikely cardiac as chest pain is reproducible, trops neg x2, ECG showed no acute infarcts. Could possibly be severe GERD sx with hx of hiatal hernia -cont to monitor on tele -cont Tylenol 650 mg PO Q6H for pain -f/u cardio recs #GERD/Hiatal Hernia -Per GI (Dr. Valenzuela): Recommend PPI PO QAM. Stop NSAIDs. US liver, EGD. Screening colonoscopy can be done as OP. -cont Protonix 40 mg PO QD -d/c'd Naprosyn per GI recs #Unspecified pulmonary density RUL -Per pulm (Dr. Loomis): Bibasilar atelectasis likely from splinting from chest pain , would start NSAIDs for chest pain -IS -d/c'd Naprosyn ordered by pulm for costochondritis as per GI recs due to possible GI etiology as cause of chest pain #DVT Prophylaxis -Heparin 5000 units SQ TID #FEN -no IVf -Electrolytes: K 4.3<3.6, improved -Regular diet dispo -cont to monitor on obs Visit type - Emergency Visit Emergency Visit: Yes ED Registration Date: 02/02/18 Care time: The patient presented to the Emergency Department on the above date and was hospitalized for further evaluation of their emergent condition. - New Patient This patient is new to me today: Yes Date on this admission: 02/03/18 - Critical Care Critical Care patient: No
[2018-02-03] MEDS: ACETAMINOPHEN 325 MG TABLET (FP) PO PRN (21:47)
[2018-02-03] MEDS: BENZOCAINE/MENTH/CETYLPYRD CL 1 EACH LOZENGE MM PRN (21:48)
[2018-02-04 06:40] LABS: BASO % 0.5 % (0-2.0); EOS % 4.7 % (0-4.5); HEMATOCRIT 32.2 % (32.4-45.2); HEMOGLOBIN 11.2 GM/dL (10.7-15.3); LYMPH % 47.4 % (8-40); MCH 34.3 pg (25.7-33.7); MCHC 34.8 g/dl (32.0-36.0); MEAN CELL VOLUME 98.6 fl (80-96); MEAN PLT VOLUME 8.4 fl (7.5-11.1); MONO % 9.1 % (3.8-10.2); NEUT % 38.3 % (42.8-82.8); PLATELET COUNT 200 K/MM3 (134-434); RBC 3.27 M/mm3 (3.60-5.2); RDW 13.9 % (11.6-15.6); WHITE BLOOD COUNT 4.8 K/mm3 (4.0-10.0)
[2018-02-04] MEDS: HEPARIN NA (PORCINE) 5,000 UNITS/ML 1ML VIAL SQ SCH ×2 (06:42→22:27)
[2018-02-04 07:03] LABS: ALBUMIN 3.1 g/dl (3.4-5.0); ANION GAP 9 (8-16); BLOOD UREA NITROGEN 16 mg/dL (7-18); CHLORIDE 105 mmol/L (98-107); CO2 27 mmol/L (21-32); GLUCOSE,RANDOM 103 mg/dL (74-106); LIPASE 83 U/L (73-393); POTASSIUM 3.9 mmol/L (3.5-5.1); SODIUM 141 mmol/L (136-145)
[2018-02-04 07:08] LABS: ALK PHOS 53 U/L (45-117); BILIRUBIN,TOTAL 0.3 mg/dL (0.2-1.0); CREATININE 0.9 mg/dL (0.55-1.02); SGOT/AST 20 U/L (15-37); SGPT/ALT 25 U/L (12-78); TOT PROT 7.4 g/dl (6.4-8.2)
--- NOTE | 2018-02-04 10:27 | PN ---
Progress Note, Physician History of Present Illness: pulmonary alert,feeling better,less cp,-sob - Current Medication List Current Medications: Active Medications Acetaminophen (Tylenol -) 650 mg PO Q6H PRN PRN Reason: PAIN LEVEL 1 - 3 Last Admin: 02/03/18 21:47 Dose: 650 mg Benzocaine/Menthol (Cepacol Lozenge -) 1 each MM DAILY PRN PRN Reason: SORE THROAT Last Admin: 02/03/18 21:48 Dose: 1 each Heparin Sodium (Porcine) (Heparin -) 5,000 unit SQ TID [facility] Last Admin: 02/04/18 06:42 Dose: 5,000 unit Pantoprazole Sodium (Protonix -) 40 mg PO DAILY [facility] Last Admin: 02/03/18 10:15 Dose: 40 mg - Objective Vital Signs: Vital Signs Temperature 97.4 F L 02/04/18 06:00 Pulse Rate 60 02/04/18 10:00 Respiratory Rate 18 02/04/18 10:00 Blood Pressure 105/66 02/04/18 10:00 O2 Sat by Pulse Oximetry (%) 99 02/03/18 21:00 Constitutional: Yes: Well Nourished, Calm Eyes: Yes: WNL HENT: Yes: WNL Neck: Yes: WNL Cardiovascular: Yes: Regular Rate and Rhythm, S1, S2 Respiratory: Yes: CTA Bilaterally Gastrointestinal: Yes: Normal Bowel Sounds, Soft Extremities: Yes: WNL Edema: No Labs: CBC, BMP 02/04/18 05:30 02/04/18 05:30 INR, PTT INR 1.12 (0.83-1.09) H 02/02/18 18:50 Assessment/Plan Problem List - Problems (1) Atypical chest pain Code(s): R07.89 - OTHER CHEST PAIN (2) Atelectasis Code(s): J98.11 - ATELECTASIS Assessment/Plan Atypical Chest Pain Bibasilar Atelectasis h/o Breast Ca GERD Hiatal Hernia - CXR findings not seen on CT chest - bibasilar atelectasis likely from splinting from chest pain - NSAIDs for chest pain - ?costochondritis - incentive spirometry DR VELASQUEZ
--- NOTE | 2018-02-04 10:40 | PN ---
Progress Note, Physician History of Present Illness: The patient is a 52 year old female, with a significant past medical history of PTSD, GERD, Hernia, Right sided breast CA s/p lumpectomy, who presents to the ED complaining of chest pain since last night. She describes her chest pain as a stabbing sensation, 8/10 in severity. She denies any radiation or modifying factors. She also reports a dry cough and mild chills associated with her chief complaint. She notes that she took Tylenol today around 12pm. The patient denies shortness of breath, headache and dizziness. Denies fever, nausea, vomiting, diarrhea or constipation. Allergies: None Past surgical history: Right lumpectomy, hysterectomy Social History: No alcohol, tobacco or drug use reported (Mikey Ma) - Current Medication List Current Medications: Active Medications Acetaminophen (Tylenol -) 650 mg PO Q6H PRN PRN Reason: PAIN LEVEL 1 - 3 Last Admin: 02/03/18 21:47 Dose: 650 mg Benzocaine/Menthol (Cepacol Lozenge -) 1 each MM DAILY PRN PRN Reason: SORE THROAT Last Admin: 02/03/18 21:48 Dose: 1 each Heparin Sodium (Porcine) (Heparin -) 5,000 unit SQ TID [facility] Last Admin: 02/04/18 06:42 Dose: 5,000 unit Pantoprazole Sodium (Protonix -) 40 mg PO DAILY [facility] Last Admin: 02/03/18 10:15 Dose: 40 mg - Objective Vital Signs: Vital Signs Temperature 97.4 F L 02/04/18 06:00 Pulse Rate 60 02/04/18 10:00 Respiratory Rate 18 02/04/18 10:00 Blood Pressure 105/66 02/04/18 10:00 O2 Sat by Pulse Oximetry (%) 99 02/04/18 09:00 Eyes: Yes: WNL, Conjunctiva Clear, EOM Intact HENT: Yes: WNL, Atraumatic, Normocephalic Neck: Yes: WNL, Supple, Trachea Midline Cardiovascular: Yes: WNL, Regular Rate and Rhythm Respiratory: Yes: WNL, Regular, CTA Bilaterally Gastrointestinal: Yes: WNL, Normal Bowel Sounds Genitourinary: Yes: WNL Musculoskeletal: Yes: WNL Extremities: Yes: WNL Edema: No Integumentary: Yes: WNL Neurological: Yes: WNL, Alert, Oriented ...Motor Strength: WNL Psychiatric: Yes: WNL Labs: CBC, BMP 02/04/18 05:30 02/04/18 05:30 INR, PTT INR 1.12 (0.83-1.09) H 02/02/18 18:50 Assessment/Plan Atypical Chest Pain Bibasilar Atelectasis h/o Breast Ca GERD Hiatal Hernia r/o mi neg echo nl EST treadmill stress test
[2018-02-04] MEDS: PANTOPRAZOLE 40 MG TABLET (FP) PO SCH (11:23)
--- NOTE | 2018-02-04 14:53 | PN ---
Physical Exam: SUBJECTIVE: Patient seen and examined at bedside. No acute events overnight. OBJECTIVE: Vital Signs Period Temp Pulse Resp BP Sys/Arroyo Pulse Ox Last 24 Hr 97.4 F-98.4 F 60-101 16-18 105-129/65-88 95-99 GENERAL:AAOx3. NAD. HEAD: Normal with no signs of trauma. EYES: PERRL, EOMI, no scleral icterus EARS, NOSE, THROAT: oropharynx clear without exudates. Moist mucous membranes. NECK: Normal range of motion, supple without lymphadenopathy, JVD, or masses. LUNGS:CTA B/L. No wheezes, rhonchi, rales noted. HEART: RRR. Normal S1, S2. No murmurs, rubs, or gallop noted. Reproducible chest pain with minimal tenderness. ABDOMEN: Soft nontender, nondistended. Normoactive bowel sounds in all 4Q's. No masses or bruits noted. UPPER EXTREMITIES: warm, well-perfused. No cyanosis. No clubbing. No peripheral edema. 5/5 muscle strength b/l. LOWER EXTREMITIES: warm, well-perfused. No calf tenderness. No peripheral edema. 5/5 muscle strength b/l. NEUROLOGICAL: Cranial nerves II-XII grossly intact. Normal speech. PSYCHIATRIC: Cooperative. Good eye contact. Appropriate mood and affect. SKIN: Warm, dry, normal turgor, no rashes or lesions noted, normal capillary refill. Laboratory Results - last 24 hr 02/03/18 02/04/18 02/04/18 06:00 05:30 05:30 WBC 4.8 RBC 3.27 L Hgb 11.2 Hct 32.2 L MCV 98.6 H MCH 34.3 H MCHC 34.8 RDW 13.9 Plt Count 200 MPV 8.4 Absolute Neuts (auto) 1.9 Neutrophils % 38.3 L D Lymphocytes % 47.4 H D Monocytes % 9.1 Eosinophils % 4.7 H D Basophils % 0.5 Nucleated RBC % 0 Sodium 141 Potassium 3.9 Chloride 105 Carbon Dioxide 27 Anion Gap 9 BUN 16 Creatinine 0.9 Creat Clearance w eGFR > 60 Random Glucose 103 Calcium 9.0 Total Bilirubin 0.3 AST 20 ALT 25 Alkaline Phosphatase 53 D Total Protein 7.4 Albumin 3.1 L Lipase 83 Free T3 2.4 Active Medications Generic Name Dose Route Start Last Admin Trade Name Freq PRN Reason Stop Dose Admin Acetaminophen 650 mg 02/03/18 19:21 02/03/18 21:47 Tylenol - PO 650 mg Q6H PRN Administration PAIN LEVEL 1 - 3 Benzocaine/Menthol 1 each 02/03/18 21:36 02/03/18 21:48 Cepacol Lozenge - MM 1 each DAILY PRN Administration SORE THROAT Heparin Sodium (Porcine) 5,000 unit 02/03/18 06:00 02/04/18 06:42 Heparin - SQ 5,000 unit TID CARLI Administration Pantoprazole Sodium 40 mg 02/03/18 10:00 02/04/18 11:23 Protonix - PO 40 mg DAILY CARLI Administration IMAGING: ECG: NSR. Possible anterior infarct. When compared with ECG of 02/02/18, no significant change was found. CT Chest: No evidence of pulm embolus within main pulm artery and its proximal branches, b/l. Bibasal atelectatic changes. Cannot r/o superimposed infiltrate. Correlate clinically for f/u. small hiatus hernia. ECHO: LV size, thickness, fxn are normal. RV is normal in size and fxn. Mild AR. RUQ U/S: No gallstones are identified. Slightly coarse echotexture of the liver suggestive of mild fatty infiltration versus hepatocellular disease. Please correlate with liver enzymes. Hypoechoic masslike density inseparable from posterior inferior margin of the right pancreatic head measuring 6.4 x 3.4 x 2.8 cm. Differential diagnosis includes an exophytic pancreatic head mass , a lymph node and the possibility of a large duodenal diverticulum. Further evaluation with MRI is recommended. In retrospect, this lesion was partially included on prior CT scan of the chest dated 02/03/2018 where a questionable plane between its anterior margin and posterior margin of the pancreatic head/uncinate process is present. Again correlation with MRI of the abdomen would be the study of choice for further evaluation. ASSESSMENT/PLAN: 52F with PMH right breast CA s/p mastectomy (remission for 19 years) with hiatal hernia and GERD admitted for obs to r/o cardiac event vs. GI etiology. #Chest pain unlikely cardiac r/o GERD or hiatal hernia; Improved since admission. Unlikely cardiac as chest pain is reproducible, trops neg x2, ECG showed no acute infarcts. Could possibly be severe GERD sx with hx of hiatal hernia. Also, per cardio eval, pt did not have an acute OK. -cont to monitor on tele -Per cardio (Dr. Torres): Stress test--Negative maximal ETT for ischemia, appropriate HR and BP response to exercise, average exercise capacity. -cont Tylenol 650 mg PO Q6H for pain #GERD/Hiatal Hernia -Per GI (Dr. Valenzuela): EGD. Screening colonoscopy can be done as OP. -cont Protonix 40 mg PO QD -RUQ U/S: mass like density inseparable from posterior inferior margin of R pancreatic head measuring 6.4x3.4x2.8cm. Ddx includes exophytic pancreatic head mass, a lymph node and the possibility of a large duodenal diverticulum. Further MRI is recommended. -r/u MRCP results and GI recs #Unspecified pulmonary density RUL; Density was seen on CXR, but not CT scan. Unknown etiology and if related to chest pain. -Per pulm (Dr. Loomis): Bibasilar atelectasis likely from splinting from chest pain , possible costochondritis -IS -Tylenol 650 mg PO Q6H PRN for costochondritis #DVT Prophylaxis -Heparin 5000 units SQ TID #FEN -no IVf -Electrolytes: K 3.9<4.3, improved -Regular diet dispo -cont to monitor on medsurg Visit type - Emergency Visit Emergency Visit: Yes ED Registration Date: 02/04/18 Care time: The patient presented to the Emergency Department on the above date and was hospitalized for further evaluation of their emergent condition. - New Patient This patient is new to me today: No - Critical Care Critical Care patient: No
--- NOTE | 2018-02-04 18:06 | PN ---
Progress Note (short form) - Note Progress Note: Stress labs preliminary report (unable to scan into [employer] [facility]) Resting ECG shows NSR @[address]-T changes. Patient exercised according to Juan protocol for 8:35 min/sec achieving work level of 10 METs, resting heart rate increased from 75 bpm to 144 bpm representing 86% maximal age-predicted HR. Resting BP alethea from 118/74 to 158/72, test stopped due to target heart rate achieved, no symptoms elicited. [address]-depressions were seen in leads II, III, AVF starting at stage 3 08:04 and resolved at 1:50 into recovery , rare PVC seen during recovery. Impression: Negative maximal ETT for ischemia, appropriate HR and BP response to exercise, average exercise capacity.
[2018-02-04] MEDS: ACETAMINOPHEN 325 MG TABLET (FP) PO PRN (19:52)
[2018-02-04] MEDS: BENZOCAINE/MENTH/CETYLPYRD CL 1 EACH LOZENGE MM PRN (19:53)
--- NOTE | 2018-02-04 20:28 | PN ---
Teaching Attending Note Name of Resident: Hafsa Vitale ATTENDING PHYSICIAN STATEMENT I saw and evaluated the patient. I reviewed the resident's note and discussed the case with the resident. I agree with the resident's findings and plan as documented. SUBJECTIVE: Patient is feeling better , No further chest pain. OBJECTIVE: Vital Signs Temperature 98.4 F 02/04/18 17:00 Pulse Rate 82 02/04/18 17:00 Respiratory Rate 19 02/04/18 17:00 Blood Pressure 117/67 02/04/18 17:00 O2 Sat by Pulse Oximetry (%) 99 02/04/18 09:00 CBCD WBC 4.8 K/mm3 (4.0-10.0) 02/04/18 05:30 RBC 3.27 M/mm3 (3.60-5.2) L 02/04/18 05:30 Hgb 11.2 GM/dL (10.7-15.3) 02/04/18 05:30 Hct 32.2 % (32.4-45.2) L 02/04/18 05:30 MCV 98.6 fl (80-96) H 02/04/18 05:30 MCHC 34.8 g/dl (32.0-36.0) 02/04/18 05:30 RDW 13.9 % (11.6-15.6) 02/04/18 05:30 Plt Count 200 K/MM3 (134-434) 02/04/18 05:30 MPV 8.4 fl (7.5-11.1) 02/04/18 05:30 CMP Sodium 141 mmol/L (136-145) 02/04/18 05:30 Potassium 3.9 mmol/L (3.5-5.1) 02/04/18 05:30 Chloride 105 mmol/L (98-107) 02/04/18 05:30 Carbon Dioxide 27 mmol/L (21-32) 02/04/18 05:30 Anion Gap 9 (8-16) 02/04/18 05:30 BUN 16 mg/dL (7-18) 02/04/18 05:30 Creatinine 0.9 mg/dL (0.55-1.02) 02/04/18 05:30 Creat Clearance w eGFR > 60 (>60) 02/04/18 05:30 Random Glucose 103 mg/dL (74-106) 02/04/18 05:30 Calcium 9.0 mg/dL (8.5-10.1) 02/04/18 05:30 Total Bilirubin 0.3 mg/dL (0.2-1.0) 02/04/18 05:30 AST 20 U/L (15-37) 02/04/18 05:30 ALT 25 U/L (12-78) 02/04/18 05:30 Alkaline Phosphatase 53 U/L (45-117) D 02/04/18 05:30 Total Protein 7.4 g/dl (6.4-8.2) 02/04/18 05:30 Albumin 3.1 g/dl (3.4-5.0) L 02/04/18 05:30 CARDIAC ENZYMES Creatine Kinase 69 IU/L (26-192) 02/02/18 18:50 Troponin I < 0.02 ng/ml (0.00-0.05) 02/03/18 05:30 Current Medications Generic Name Dose Route Start Last Admin Trade Name Freq PRN Reason Stop Dose Admin Acetaminophen 650 mg 02/03/18 19:21 02/04/18 19:52 Tylenol - PO 650 mg Q6H PRN Administration PAIN LEVEL 1 - 3 Benzocaine/Menthol 1 each 02/03/18 21:36 02/04/18 19:53 Cepacol Lozenge - MM 1 each DAILY PRN Administration SORE THROAT Heparin Sodium (Porcine) 5,000 unit 02/03/18 06:00 02/04/18 06:42 Heparin - SQ 5,000 unit TID CARLI Administration Pantoprazole Sodium 40 mg 02/03/18 10:00 02/04/18 11:23 Protonix - PO 40 mg DAILY CARLI Administration Home Medications Medication Instructions Recorded NK [No Known Home Medication] 02/02/18 ECG: NSR. Possible anterior infarct. When compared with ECG of 02/02/18, no significant change was found. CT Chest: No evidence of pulm embolus within main pulm artery and its proximal branches, b/l. Bibasal atelectatic changes. Cannot r/o superimposed infiltrate. Correlate clinically for f/u. small hiatus hernia. ECHO: LV size, thickness, fxn are normal. RV is normal in size and fxn. Mild AR. RUQ U/S: No gallstones are identified. Slightly coarse echotexture of the liver suggestive of mild fatty infiltration versus hepatocellular disease. Please correlate with liver enzymes. Hypoechoic masslike density inseparable from posterior inferior margin of the right pancreatic head measuring 6.4 x 3.4 x 2.8 cm. Differential diagnosis includes an exophytic pancreatic head mass , a lymph node and the possibility of a large duodenal diverticulum. Further evaluation with MRI is recommended. In retrospect, this lesion was partially included on prior CT scan of the chest dated 02/03/2018 where a questionable plane between its anterior margin and posterior margin of the pancreatic head/uncinate process is present. Again correlation with MRI of the abdomen would be the study of choice for further evaluation. ASSESSMENT AND PLAN: Patient is a 52 year old woman with PMHx PTSD, GERD, Hernia, Right sided breast CA s/p mastectomy (radio and chemotherapy), who presents to the ER complaining of chest pain for 1 day. # Acute Chest pain PR is rulled out, : CE q6x 2, EKG, Cardio consult appreciated. Echo nl, except mild AR. # Hypoechoec mass like density from posterior inferioir margin of Pancreatric head cannot r/o neoplasm, MRCP ordered , and patient was seen by GI. DVT prophylaxis - Heparin 5000u sq tid. Advance directives - Full code
[2018-02-05] MEDS: HEPARIN NA (PORCINE) 5,000 UNITS/ML 1ML VIAL SQ SCH ×4 (06:38→21:14)
[2018-02-05] MEDS: PANTOPRAZOLE 40 MG TABLET (FP) PO SCH (09:36)
--- NOTE | 2018-02-05 09:54 | PN ---
Progress Note, Physician History of Present Illness: The patient is a 52 year old female, with a significant past medical history of PTSD, GERD, Hernia, Right sided breast CA s/p lumpectomy, who presents to the ED complaining of chest pain since last night. She describes her chest pain as a stabbing sensation, 8/10 in severity. She denies any radiation or modifying factors. She also reports a dry cough and mild chills associated with her chief complaint. She notes that she took Tylenol today around 12pm. The patient denies shortness of breath, headache and dizziness. Denies fever, nausea, vomiting, diarrhea or constipation. Allergies: None Past surgical history: Right lumpectomy, hysterectomy Social History: No alcohol, tobacco or drug use reported (Mikey Ma) - Current Medication List Current Medications: Active Medications Acetaminophen (Tylenol -) 650 mg PO Q6H PRN PRN Reason: PAIN LEVEL 1 - 3 Last Admin: 02/04/18 19:52 Dose: 650 mg Benzocaine/Menthol (Cepacol Lozenge -) 1 each MM DAILY PRN PRN Reason: SORE THROAT Last Admin: 02/04/18 19:53 Dose: 1 each Heparin Sodium (Porcine) (Heparin -) 5,000 unit SQ TID [facility] Last Admin: 02/05/18 06:38 Dose: 5,000 unit Pantoprazole Sodium (Protonix -) 40 mg PO DAILY [facility] Last Admin: 02/05/18 09:36 Dose: 40 mg - Objective Vital Signs: Vital Signs Temperature 98.3 F 02/05/18 08:26 Pulse Rate 72 02/05/18 08:26 Respiratory Rate 20 02/05/18 08:26 Blood Pressure 111/59 02/05/18 08:26 O2 Sat by Pulse Oximetry (%) 99 02/04/18 21:00 Eyes: Yes: WNL, Conjunctiva Clear, EOM Intact HENT: Yes: WNL, Atraumatic, Normocephalic Neck: Yes: WNL, Supple, Trachea Midline Cardiovascular: Yes: WNL, Regular Rate and Rhythm Respiratory: Yes: WNL, Regular, CTA Bilaterally Gastrointestinal: Yes: WNL, Normal Bowel Sounds Genitourinary: Yes: WNL Musculoskeletal: Yes: WNL Extremities: Yes: WNL Edema: No Integumentary: Yes: WNL Neurological: Yes: WNL, Alert, Oriented ...Motor Strength: WNL Psychiatric: Yes: WNL Labs: CBC, BMP 02/04/18 05:30 02/04/18 05:30 INR, PTT INR 1.12 (0.83-1.09) H 02/02/18 18:50 Problem List - Problems (1) Atelectasis Code(s): J98.11 - ATELECTASIS (2) Atypical chest pain Code(s): R07.89 - OTHER CHEST PAIN (3) Chest pain Code(s): R07.9 - CHEST PAIN, UNSPECIFIED Qualifiers: Chest pain type: unspecified Qualified Code(s): R07.9 - Chest pain, unspecified Assessment/Plan Atypical Chest Pain Bibasilar Atelectasis h/o Breast Ca GERD Hiatal Hernia r/o mi neg echo nl EST treadmill stress test negative d/c telemetry
[2018-02-05] MEDS ORDERED: ACETAMINOPHEN 325 MG TABLET (FP) PO PRN (12:06)
[2018-02-05] MEDS ORDERED: BENZOCAINE/MENTH/CETYLPYRD CL 1 EACH LOZENGE MM PRN (12:06)
--- NOTE | 2018-02-05 13:00 | PN ---
Physical Exam: SUBJECTIVE: Patient seen and examined OBJECTIVE: Vital Signs Temperature 98.3 F 02/05/18 08:26 Pulse Rate 72 02/05/18 08:26 Respiratory Rate 20 02/05/18 09:00 Blood Pressure 111/59 02/05/18 08:26 O2 Sat by Pulse Oximetry (%) 99 02/05/18 09:00 GENERAL: The patient is awake, alert, and fully oriented, in no acute distress. HEAD: Normal with no signs of trauma. EYES: PERRL, extraocular movements intact, sclera anicteric, conjunctiva clear. No ptosis. ENT: Ears normal, nares patent, oropharynx clear without exudates, moist mucous membranes. NECK: Trachea midline, full range of motion, supple. LUNGS: Breath sounds equal, clear to auscultation bilaterally, no wheezes, no crackles, no accessory muscle use. HEART: Regular rate and rhythm, S1, S2 without murmur, rub or gallop. ABDOMEN: Soft, nontender, nondistended, normoactive bowel sounds, no guarding, no rebound, no hepatosplenomegaly, no masses. EXTREMITIES: 2+ pulses, warm, well-perfused, no edema. NEUROLOGICAL: Cranial nerves II through XII grossly intact. Normal speech, gait not observed. PSYCH: Normal mood, normal affect. SKIN: Warm, dry, normal turgor, no rashes or lesions noted Laboratory Results - last 24 hr 02/04/18 05:30 Hemoglobin A1c % 5.9 Active Medications Generic Name Dose Route Start Last Admin Trade Name Freq PRN Reason Stop Dose Admin Acetaminophen 650 mg 02/05/18 12:06 Tylenol - PO Q6H PRN PAIN LEVEL 1 - 3 Benzocaine/Menthol 1 each 02/05/18 12:06 Cepacol Lozenge - MM DAILY PRN SORE THROAT Heparin Sodium (Porcine) 5,000 unit 02/05/18 14:00 Heparin - SQ TID CARLI Pantoprazole Sodium 40 mg 02/06/18 10:00 Protonix - PO DAILY CARLI Current Medications Generic Name Dose Route Start Last Admin Trade Name Freq PRN Reason Stop Dose Admin Acetaminophen 650 mg 02/05/18 12:06 Tylenol - PO Q6H PRN PAIN LEVEL 1 - 3 Benzocaine/Menthol 1 each 02/05/18 12:06 Cepacol Lozenge - MM DAILY PRN SORE THROAT Heparin Sodium (Porcine) 5,000 unit 02/05/18 14:00 Heparin - SQ TID CARLI Pantoprazole Sodium 40 mg 02/06/18 10:00 Protonix - PO DAILY CARLI Home Medications Medication Instructions Recorded NK [No Known Home Medication] 02/02/18 Nellie Kemp Name: PATTIE ESPINOZA DEPARTMENT OF RADIOLOGY Phys: [place] Josue RESIDENT : 1965 Age: 52 Sex: F [facility] Acct: [id number] Loc: [id number] [facility] Exam Date: 02/04/18 Status: [place] [address] Unit Number: [id number] EXAM#: TYPE/EXAM: RESULT: [id number] MRI/ABDOMEN MRI W/O CONTRAST /MRCP MRI of the abdomen and MRCP. Medical history: Abdominal mass suspected on recent CTA of the chest. Coronal and axial T1, T2, in phase, out of phase weighted images were obtained followed with MRCP weighted images. There is no evidence of hepatosplenomegaly. MRCP is unremarkable with no evidence of dilatation of the intrahepatic biliary radicles, common hepatic or common bile ducts. No evidence of choledocholithiasis. No evidence of pancreatic enlargement or pancreatic duct dilatation. There are multiple small pancreatic cysts of within atrophic pancreas compatible IPM. There is a 6.3 x 5 x 2.5 cm sharply delineated mass in the retroperitoneum anterior to the inferior vena cava and separate from the uncinate process which is displaced anteriorly. There was no suspicious perifocal infiltrative changes in the retroperitoneal fat. The lesion is benign in its appearance and may represent a retroperitoneal cyst or less likely descending duodenum diverticulum.. MRI with contrast however to be considered for further and definitive evaluation. Multiple small renal cysts with no evidence of obstructive uropathy. Impression: 6.3 x 5 x 2 5 cm sharply delineated mass in the retroperitoneum anterior to the inferior vena cava behind the uncinate process of the pancreas with no suspicious perifocal fatty infiltration changes. The lesion is benign in appearance and may be related to a retroperitoneal cyst or less likely to a duodenal diverticulum,. MRI with contrast to be considered for further and definitive evaluation. MR CP unremarkable with no evidence of dilatation of the common hepatic or common bile duct. No evidence of choledocholithiasis. Multiple small cysts within the pancreas which is atrophic. No suspicious retroperitoneal lymphadenopathy. No suspicious solid neoplasm of the liver pancreas or spleen.. Reported By: Vivek Garcia MD 02/05/18 1048 ASSESSMENT AND PLAN: Patient is a 52 year old woman with PMHx PTSD, GERD, Hernia, Right sided breast CA s/p mastectomy (radio and chemotherapy), who presents to the ER complaining of chest pain for 1 day. # Acute Chest pain VA is rulled out, : CE q6x 2, EKG, Cardio consult appreciated. Echo nl, except mild AR. # Hypoechoec mass like density from posterior inferioir margin of Pancreatric head cannot r/o neoplasm by US, MRCP is ordered , and patient was seen by GI. MRcp: No evidence of pancreatic enlargement or pancreatic duct dilatation. There are multiple small pancreatic cysts of within atrophic pancreas compatible IPM. There is a 6.3 x 5 x 2.5 cm sharply delineated mass in the retroperitoneum anterior to the inferior vena cava and separate from the uncinate process which is displaced anteriorly. will get IR involved for Bx and Dr. Larry for further evaluation. Patient has a hx of Breast CAncer. DVT prophylaxis - Heparin 5000u sq tid. Advance directives - Full code Visit type - Emergency Visit Emergency Visit: Yes ED Registration Date: 02/04/18 Care time: The patient presented to the Emergency Department on the above date and was hospitalized for further evaluation of their emergent condition. - New Patient This patient is new to me today: No - Critical Care Critical Care patient: No - Discharge Referral Referred to [facility] No
--- NOTE | 2018-02-05 13:46 | PN ---
Progress Note (short form) - Note Progress Note: PULMONARY Still some anterior chest pain. No shortness of breath. Vital Signs Period Temp Pulse Resp BP Sys/Arroyo Pulse Ox Last 24 Hr 97.8 F-98.4 F 60-101 18-20 94-129/55-88 99-99 Gen: NAD at rest Heart: RRR Lung: decreased breath sounds at the bases Abd: soft, nontender Ext: no edema CBC, BMP 02/04/18 05:30 02/04/18 05:30 Active Medications Acetaminophen (Tylenol -) 650 mg PO Q6H PRN PRN Reason: PAIN LEVEL 1 - 3 Benzocaine/Menthol (Cepacol Lozenge -) 1 each MM DAILY PRN PRN Reason: SORE THROAT Heparin Sodium (Porcine) (Heparin -) 5,000 unit SQ TID CARLI Last Admin: 02/05/18 13:33 Dose: Not Given Pantoprazole Sodium (Protonix -) 40 mg PO DAILY [facility] A/P Atypical Chest Pain Bibasilar Atelectasis Retroperitoneal Mass h/o Breast Ca GERD Hiatal Hernia - bibasilar atelectasis likely from splinting from chest pain - pain control - incentive spirometry - DVT prophylaxis Problem List - Problems (1) Atypical chest pain Code(s): R07.89 - OTHER CHEST PAIN (2) Atelectasis Code(s): J98.11 - ATELECTASIS
[2018-02-05] MEDS: BACITRACIN 15 GM TUBE TOPICAL OINTMENT TP SCH ×2 (15:16→21:18)
[2018-02-05] MEDS ORDERED: POLYETHYLENE GLYCOL 3350 119 GM BTL PO ONE (22:45)
[2018-02-05] MEDS ORDERED: PT OWN MED DRAWER 7, Y5N ONE (23:43)
[2018-02-06] MEDS: HEPARIN NA (PORCINE) 5,000 UNITS/ML 1ML VIAL SQ SCH ×3 (06:03→22:27)
--- NOTE | 2018-02-06 07:31 | PN ---
Physical Exam: SUBJECTIVE: Patient seen and examined at bedside. No acute events overnight. Pt denies fever/chills, n/v, chest pain, sob, urinary/bowel symptoms. OBJECTIVE: Vital Signs Period Temp Pulse Resp BP Sys/Arroyo Pulse Ox Last 24 Hr 97.8 F-98.7 F 63-84 20-20 111-133/59-91 98-99 GENERAL:AAOx3. NAD. HEENT: AT/NC. Moist mucus membranes. No erythema note in oropharynx. NECK: Normal range of motion, supple without lymphadenopathy, JVD, or masses. LUNGS:CTA B/L. No wheezes, rhonchi, rales noted. HEART: RRR. Normal S1, S2. No murmurs, rubs, or gallop noted. Reproducible chest pain with minimal tenderness. ABDOMEN: Soft nontender, nondistended. Normoactive bowel sounds in all 4Q's. No masses or bruits noted. UPPER EXTREMITIES: warm, well-perfused. No cyanosis. No clubbing. No peripheral edema. 5/5 muscle strength b/l. LOWER EXTREMITIES: warm, well-perfused. No calf tenderness. No peripheral edema. 5/5 muscle strength b/l. NEUROLOGICAL: Cranial nerves II-XII grossly intact. Normal speech. PSYCHIATRIC: Cooperative. Good eye contact. Appropriate mood and affect. SKIN: Warm, dry, normal turgor, no rashes or lesions noted, normal capillary refill. Laboratory Results - last 24 hr 02/04/18 05:30 Hemoglobin A1c % 5.9 Active Medications Generic Name Dose Route Start Last Admin Trade Name Freq PRN Reason Stop Dose Admin Acetaminophen 650 mg 02/05/18 12:06 Tylenol - PO Q6H PRN PAIN LEVEL 1 - 3 Bacitracin 1 applic 02/05/18 14:00 02/05/18 21:18 Bacitracin - TP 1 applic BID CARLI Administration Benzocaine/Menthol 1 each 02/05/18 12:06 Cepacol Lozenge - MM DAILY PRN SORE THROAT Heparin Sodium (Porcine) 5,000 unit 02/05/18 14:00 02/06/18 06:03 Heparin - SQ Not Given TID CARLI Pantoprazole Sodium 40 mg 02/06/18 10:00 Protonix - PO DAILY CARLI IMAGING: MRCP: 6.3 x 5 x 2 5 cm sharply delineated mass in the retroperitoneum anterior to the inferior vena cava behind the uncinate process of the pancreas with no suspicious perifocal fatty infiltration changes. The lesion is benign in appearance and may be related to a retroperitoneal cyst or less likely to a duodenal diverticulum,. MRI with contrast to be considered for further and definitive evaluation. MRCP unremarkable with no evidence of dilatation of the common hepatic or common bile duct. No evidence of choledocholithiasis. Multiple small cysts within the pancreas which is atrophic. No suspicious retroperitoneal lymphadenopathy. No suspicious solid neoplasm of the liver pancreas or spleen.. ECG: NSR. Possible anterior infarct. When compared with ECG of 02/02/18, no significant change was found. CT Chest: No evidence of pulm embolus within main pulm artery and its proximal branches, b/l. Bibasal atelectatic changes. Cannot r/o superimposed infiltrate. Correlate clinically for f/u. small hiatus hernia. ECHO: LV size, thickness, fxn are normal. RV is normal in size and fxn. Mild AR. RUQ U/S: No gallstones are identified. Slightly coarse echotexture of the liver suggestive of mild fatty infiltration versus hepatocellular disease. Please correlate with liver enzymes. Hypoechoic masslike density inseparable from posterior inferior margin of the right pancreatic head measuring 6.4 x 3.4 x 2.8 cm. Differential diagnosis includes an exophytic pancreatic head mass , a lymph node and the possibility of a large duodenal diverticulum. Further evaluation with MRI is recommended. In retrospect, this lesion was partially included on prior CT scan of the chest dated 02/03/2018 where a questionable plane between its anterior margin and posterior margin of the pancreatic head/uncinate process is present. Again correlation with MRI of the abdomen would be the study of choice for further evaluation. ASSESSMENT/PLAN: 52F with PMH right breast CA s/p mastectomy (remission for 19 years) with hiatal hernia and GERD admitted for obs to r/o cardiac event vs. GI etiology. #Atypical chest pain likely 2/2 GI etiology; Improved since admission. Unlikely cardiac as chest pain is reproducible, trops neg x2, ECG showed no acute infarcts. Could possibly be severe GERD sx with hx of hiatal hernia. Also, per cardio eval, pt did not have an acute IA. -cont to monitor on tele -Per cardio (Dr. Torres): Stress test--Negative maximal ETT for ischemia, appropriate HR and BP response to exercise, average exercise capacity. 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 Gross): f/u VitB12, Folic acid level due to increased MCV ( MMA also recommended, but prior authorization is needed). Would try to touch base with him during the week and obtain more information on duration of hormonal therapy and regularity with which she is receiving mammograms to contralateral breast. #GERD/Hiatal Hernia -IR tomorrow for biopsy of mass seen on MRCP -Per GI (Dr. Valenzuela): EGD. Screening colonoscopy can be done as OP. -cont Protonix 40 mg PO QD #Unspecified pulmonary density RUL; Density was seen on CXR, but not CT scan. Unknown etiology and if related to chest pain. -Per pulm (Dr. Loomis): Bibasilar atelectasis likely from splinting from chest pain -IS -Tylenol 650 mg PO Q6H PRN for pain #DVT Prophylaxis -Heparin 5000 units SQ TID #FEN -no IVf -lytes wnl -Regular diet; NPO after midnight for IR biopsy tomorrow dispo -cont to monitor on medsurg Visit type - Emergency Visit Emergency Visit: Yes ED Registration Date: 02/04/18 Care time: The patient presented to the Emergency Department on the above date and was hospitalized for further evaluation of their emergent condition. - New Patient This patient is new to me today: No - Critical Care Critical Care patient: No
--- NOTE | 2018-02-06 07:50 | PN ---
Physical Exam: SUBJECTIVE: Patient seen and examined OBJECTIVE: Vital Signs Period Temp Pulse Resp BP Sys/Arroyo Pulse Ox Last 24 Hr 97.8 F-98.7 F 63-84 20-20 111-133/59-91 98-99 GENERAL: The patient is awake, alert, and fully oriented, in no acute distress. HEAD: Normal with no signs of trauma. EYES: PERRL, extraocular movements intact, sclera anicteric, conjunctiva clear. No ptosis. ENT: Ears normal, nares patent, oropharynx clear without exudates, moist mucous membranes. NECK: Trachea midline, full range of motion, supple. LUNGS: Breath sounds equal, clear to auscultation bilaterally, no wheezes, no crackles, no accessory muscle use. HEART: Regular rate and rhythm, S1, S2 without murmur, rub or gallop. ABDOMEN: Soft, nontender, nondistended, normoactive bowel sounds, no guarding, no rebound, no hepatosplenomegaly, no masses. EXTREMITIES: 2+ pulses, warm, well-perfused, no edema. NEUROLOGICAL: Cranial nerves II through XII grossly intact. Normal speech, gait not observed. PSYCH: Normal mood, normal affect. SKIN: Warm, dry, normal turgor, no rashes or lesions noted Laboratory Results - last 24 hr 02/04/18 05:30 Hemoglobin A1c % 5.9 Active Medications Generic Name Dose Route Start Last Admin Trade Name Freq PRN Reason Stop Dose Admin Acetaminophen 650 mg 02/05/18 12:06 Tylenol - PO Q6H PRN PAIN LEVEL 1 - 3 Bacitracin 1 applic 02/05/18 14:00 02/05/18 21:18 Bacitracin - TP 1 applic BID CARLI Administration Benzocaine/Menthol 1 each 02/05/18 12:06 Cepacol Lozenge - MM DAILY PRN SORE THROAT Heparin Sodium (Porcine) 5,000 unit 02/05/18 14:00 02/06/18 06:03 Heparin - SQ Not Given TID CARLI Pantoprazole Sodium 40 mg 02/06/18 10:00 Protonix - PO DAILY [facility] ASSESSMENT/PLAN:
[2018-02-06 08:47] LABS: BASO % 0.6 % (0-2.0); EOS % 4.3 % (0-4.5); HEMATOCRIT 36.2 % (32.4-45.2); HEMOGLOBIN 12.4 GM/dL (10.7-15.3); MCH 33.2 pg (25.7-33.7); MCHC 34.3 g/dl (32.0-36.0); MEAN CELL VOLUME 96.6 fl (80-96); MEAN PLT VOLUME 8.5 fl (7.5-11.1); MONO % 8.6 % (3.8-10.2); NEUT % 46.5 % (42.8-82.8); PLATELET COUNT 250 K/MM3 (134-434); RBC 3.75 M/mm3 (3.60-5.2); RDW 13.8 % (11.6-15.6); WHITE BLOOD COUNT 5.1 K/mm3 (4.0-10.0)
[2018-02-06 09:15] LABS: ALBUMIN 3.7 g/dl (3.4-5.0); ANION GAP 8 (8-16); BLOOD UREA NITROGEN 16 mg/dL (7-18); CALCIUM 9.8 mg/dL (8.5-10.1); CHLORIDE 105 mmol/L (98-107); CO2 26 mmol/L (21-32); CREATININE 0.9 mg/dL (0.55-1.02); GLUCOSE,RANDOM 95 mg/dL (74-106); PHOSPHOROUS 3.7 mg/dL (2.5-4.9); POTASSIUM 4.3 mmol/L (3.5-5.1); SGOT/AST 46 U/L (15-37); SGPT/ALT 42 U/L (12-78); SODIUM 139 mmol/L (136-145)
[2018-02-06 09:16] LABS: ALK PHOS 61 U/L (45-117); BILIRUBIN,TOTAL 0.3 mg/dL (0.2-1.0); TOT PROT 8.4 g/dl (6.4-8.2)
--- NOTE | 2018-02-06 09:34 | PN ---
Progress Note, Physician History of Present Illness: The patient is a 52 year old female, with a significant past medical history of PTSD, GERD, Hernia, Right sided breast CA s/p lumpectomy, who presents to the ED complaining of chest pain since last night. She describes her chest pain as a stabbing sensation, 8/10 in severity. She denies any radiation or modifying factors. She also reports a dry cough and mild chills associated with her chief complaint. She notes that she took Tylenol today around 12pm. The patient denies shortness of breath, headache and dizziness. Denies fever, nausea, vomiting, diarrhea or constipation. Allergies: None Past surgical history: Right lumpectomy, hysterectomy Social History: No alcohol, tobacco or drug use reported (Mikey Ma) - Current Medication List Current Medications: Active Medications Acetaminophen (Tylenol -) 650 mg PO Q6H PRN PRN Reason: PAIN LEVEL 1 - 3 Bacitracin (Bacitracin -) 1 applic TP BID [facility] Last Admin: 02/05/18 21:18 Dose: 1 applic Benzocaine/Menthol (Cepacol Lozenge -) 1 each MM DAILY PRN PRN Reason: SORE THROAT Heparin Sodium (Porcine) (Heparin -) 5,000 unit SQ TID [facility] Last Admin: 02/06/18 06:03 Dose: Not Given Pantoprazole Sodium (Protonix -) 40 mg PO DAILY [facility] - Objective Vital Signs: Vital Signs Temperature 98.0 F 02/06/18 06:00 Pulse Rate 63 02/06/18 06:00 Respiratory Rate 20 02/06/18 06:00 Blood Pressure 133/74 02/06/18 06:00 O2 Sat by Pulse Oximetry (%) 98 02/05/18 21:00 Eyes: Yes: WNL, Conjunctiva Clear, EOM Intact HENT: Yes: WNL, Atraumatic, Normocephalic Neck: Yes: WNL, Supple, Trachea Midline Cardiovascular: Yes: WNL, Regular Rate and Rhythm Respiratory: Yes: WNL, Regular, CTA Bilaterally Gastrointestinal: Yes: WNL, Normal Bowel Sounds Genitourinary: Yes: WNL Musculoskeletal: Yes: WNL Extremities: Yes: WNL Edema: No Integumentary: Yes: WNL Neurological: Yes: WNL, Alert, Oriented ...Motor Strength: WNL Psychiatric: Yes: WNL Labs: CBC, BMP 02/06/18 08:10 02/06/18 08:10 INR, PTT INR 1.12 (0.83-1.09) H 02/02/18 18:50 Problem List - Problems (1) Atelectasis Code(s): J98.11 - ATELECTASIS (2) Atypical chest pain Code(s): R07.89 - OTHER CHEST PAIN (3) Chest pain Code(s): R07.9 - CHEST PAIN, UNSPECIFIED Qualifiers: Chest pain type: unspecified Qualified Code(s): R07.9 - Chest pain, unspecified Assessment/Plan Atypical Chest Pain Bibasilar Atelectasis h/o Breast Ca GERD Hiatal Hernia r/o mi neg echo nl EST treadmill stress test negative
[2018-02-06] MEDS ORDERED: PT OWN MED DRAWER 7, Y5N ONE ×2 (09:41→20:16)
[2018-02-06] MEDS: PANTOPRAZOLE 40 MG TABLET (FP) PO SCH (09:49)
[2018-02-06] MEDS: BACITRACIN 15 GM TUBE TOPICAL OINTMENT TP SCH ×2 (09:49→22:28)
--- NOTE | 2018-02-06 10:24 | CONSULT ---
Consult Consult Specialty:: Hematology/Oncology Referred by:: Adelaida Reason for Consultation:: Retroperitoneal mass - History of Present Illness Chief Complaint: retroperitoneal mass, Hx of breast cancer History of Present Illness: is a 52 yo female with a PMHx of PTSD, GERD, hiatal hernia, Right sided breast cancer s/p lumpectomy who presented with CP. After admission, she has undergone cardiac work-up for an DC which is negative. Oncology has been consulted because of a new retro-pancreatic mass given her prior history of malignancy. On speaking with patient today she says she underwent lumpectomy and mastectomy with TRAM flap reconstruction in [id number] after which she received chemotherapy and was placed on tamoxifen + lupron. She had endometrial hyperplasia while on tamoxifen and had to undergo a hysterectomy after which she was on femrara for a few years. She cannot remember when she exactly stopped femara. Her oncologists that treated her are in [facility]. She denies having any B symptoms- nightsweats, weightloss etc. Says she usually has a feeling of abdominal bloating but this is not new. An MRI performed during this admission shows the following findings : 6.3 X5X2.5 cms sharply delineated mass in the retroperitoneum, anterior to the IVC, behind the uncinate process of the pancreas, lesion is benign in appearance. Retroperitoneal cyst vs. duodenenal diverticulum. - History Source History Provided By: Patient Limitations to Obtaining History: No Limitations - Past Medical History Gastrointestinal: Yes: GERD, Hiatal Hernia - Past Surgical History Past Surgical History: Yes: Mastectomy (right) - Alcohol/Substance Use Hx Alcohol Use: No - Smoking History Smoking history: Unknown if ever smoked Have you smoked in the past 12 months: No Home Medications - Allergies Allergies/Adverse Reactions: Allergies Allergy/AdvReac Type Severity Reaction Status Date / Time No Known Allergies Allergy Verified 02/02/18 19:11 - Home Medications Home Medications: Ambulatory Orders NK [No Known Home Medication] 02/02/18 Review of Systems - Review of Systems Constitutional: reports: No Symptoms Eyes: reports: No Symptoms HENT: reports: No Symptoms Neck: reports: No Symptoms Cardiovascular: reports: No Symptoms, Chest Pain Respiratory: reports: No Symptoms Gastrointestinal: reports: Bloating Genitourinary: reports: No Symptoms Breasts: reports: No Symptoms Reported Musculoskeletal: reports: No Symptoms Integumentary: reports: No Symptoms Neurological: reports: No Symptoms Endocrine: reports: No Symptoms Hematology/Lymphatic: reports: No Symptoms Psychiatric: reports: No Symptoms Physical Exam Vital Signs: Vital Signs Temperature 98.0 F 02/06/18 06:00 Pulse Rate 63 02/06/18 06:00 Respiratory Rate 20 02/06/18 06:00 Blood Pressure 133/74 02/06/18 06:00 O2 Sat by Pulse Oximetry (%) 98 02/05/18 21:00 Constitutional: Yes: Well Nourished Eyes: Yes: WNL, Conjunctiva Clear, EOM Intact HENT: Yes: WNL, Atraumatic, Normocephalic Neck: Yes: WNL, Supple Cardiovascular: Yes: WNL, Regular Rate and Rhythm Respiratory: Yes: WNL, CTA Bilaterally Gastrointestinal: Yes: WNL, Normal Bowel Sounds Breast(s): Yes: Left (wnl), Right (jorge-breast s/p TRAM Flap appears healthy) Musculoskeletal: Yes: WNL Extremities: Yes: WNL Edema: No Integumentary: Yes: WNL Neurological: Yes: WNL, Alert, Oriented Psychiatric: Yes: WNL Labs: CBC, BMP 02/06/18 08:10 02/06/18 08:10 Assessment/Plan 52 y/o female presenting with CP, prior Hx of breast cancer s/p mastectomy, TRAM flap reconstruction and abdominal bloating. Imaging performed during this admission shows a 6.3 X5X2.5 cms sharply delineated mass in the retroperitoneum , anterior to the IVC, behind the uncinate process of the pancreas, lesion is benign in appearance. Retroperitoneal cyst vs. duodenenal diverticulum. -Given the position and appearance of the mass, would recommend proceeding with IR guided biopsy. Procedure planned for tomorrow, patient NPO after midnight -she appears to have good follow-up for her breast cancer with her oncologist at [facility]. Would try to touch base with him during the week and obtain more information on duration of hormonal therapy and regularity with which she is receiving mammograms to contralateral breast. -CP rule out per primary team - noted to have mildly elevated MCV on her CBC- please check Vitamin B12 levels , Methylmalonic acid and folic acid levels -Thank you for the consultation, will continue to follow
--- NOTE | 2018-02-06 12:27 | PN ---
Progress Note (short form) - Note Progress Note: PULMONARY Still some anterior chest pain but improving. No shortness of breath. Vital Signs Period Temp Pulse Resp BP Sys/Arroyo Pulse Ox Last 24 Hr 97.8 F-98.7 F 63-84 20-20 112-133/64-91 98 Gen: NAD at rest Heart: RRR Lung: decreased breath sounds at the bases Abd: soft, nontender Ext: no edema CBC, BMP 02/06/18 08:10 02/06/18 08:10 Active Medications Acetaminophen (Tylenol -) 650 mg PO Q6H PRN PRN Reason: PAIN LEVEL 1 - 3 Bacitracin (Bacitracin -) 1 applic TP BID [facility] Last Admin: 02/06/18 09:49 Dose: 1 applic Benzocaine/Menthol (Cepacol Lozenge -) 1 each MM DAILY PRN PRN Reason: SORE THROAT Heparin Sodium (Porcine) (Heparin -) 5,000 unit SQ TID [facility] Last Admin: 02/06/18 06:03 Dose: Not Given Pantoprazole Sodium (Protonix -) 40 mg PO DAILY [facility] Last Admin: 02/06/18 09:49 Dose: 40 mg A/P Atypical Chest Pain Bibasilar Atelectasis Retroperitoneal Mass h/o Breast Ca GERD Hiatal Hernia - for CT guided needle biopsy - bibasilar atelectasis likely from splinting from chest pain - pain control - incentive spirometry - DVT prophylaxis Problem List - Problems (1) Atypical chest pain Code(s): R07.89 - OTHER CHEST PAIN (2) Atelectasis Code(s): J98.11 - ATELECTASIS
--- NOTE | 2018-02-06 20:45 | PN ---
Teaching Attending Note Name of Resident: Hafsa Vitale ATTENDING PHYSICIAN STATEMENT I saw and evaluated the patient. I reviewed the resident's note and discussed the case with the resident. I agree with the resident's findings and plan as documented. SUBJECTIVE: Patient is comfortable with no acute distress, no shortness of breath. OBJECTIVE: Vital Signs Temperature 98.7 F 02/06/18 18:00 Pulse Rate 64 02/06/18 18:00 Respiratory Rate 18 02/06/18 18:00 Blood Pressure 109/70 02/06/18 18:00 O2 Sat by Pulse Oximetry (%) 98 02/06/18 09:00 CBCD WBC 5.1 K/mm3 (4.0-10.0) 02/06/18 08:10 RBC 3.75 M/mm3 (3.60-5.2) 02/06/18 08:10 Hgb 12.4 GM/dL (10.7-15.3) 02/06/18 08:10 Hct 36.2 % (32.4-45.2) 02/06/18 08:10 MCV 96.6 fl (80-96) H 02/06/18 08:10 MCHC 34.3 g/dl (32.0-36.0) 02/06/18 08:10 RDW 13.8 % (11.6-15.6) 02/06/18 08:10 Plt Count 250 K/MM3 (134-434) D 02/06/18 08:10 MPV 8.5 fl (7.5-11.1) 02/06/18 08:10 CMP Sodium 139 mmol/L (136-145) 02/06/18 08:10 Potassium 4.3 mmol/L (3.5-5.1) 02/06/18 08:10 Chloride 105 mmol/L (98-107) 02/06/18 08:10 Carbon Dioxide 26 mmol/L (21-32) 02/06/18 08:10 Anion Gap 8 (8-16) 02/06/18 08:10 BUN 16 mg/dL (7-18) 02/06/18 08:10 Creatinine 0.9 mg/dL (0.55-1.02) 02/06/18 08:10 Creat Clearance w eGFR > 60 (>60) 02/06/18 08:10 Random Glucose 95 mg/dL (74-106) 02/06/18 08:10 Calcium 9.8 mg/dL (8.5-10.1) 02/06/18 08:10 Total Bilirubin 0.3 mg/dL (0.2-1.0) 02/06/18 08:10 AST 46 U/L (15-37) H 02/06/18 08:10 ALT 42 U/L (12-78) 02/06/18 08:10 Alkaline Phosphatase 61 U/L (45-117) 02/06/18 08:10 Total Protein 8.4 g/dl (6.4-8.2) H 02/06/18 08:10 Albumin 3.7 g/dl (3.4-5.0) 02/06/18 08:10 CARDIAC ENZYMES Creatine Kinase 69 IU/L (26-192) 02/02/18 18:50 Troponin I < 0.02 ng/ml (0.00-0.05) 02/03/18 05:30 CMP Sodium 139 mmol/L (136-145) 02/06/18 08:10 Potassium 4.3 mmol/L (3.5-5.1) 02/06/18 08:10 Chloride 105 mmol/L (98-107) 02/06/18 08:10 Carbon Dioxide 26 mmol/L (21-32) 02/06/18 08:10 Anion Gap 8 (8-16) 02/06/18 08:10 BUN 16 mg/dL (7-18) 02/06/18 08:10 Creatinine 0.9 mg/dL (0.55-1.02) 02/06/18 08:10 Creat Clearance w eGFR > 60 (>60) 02/06/18 08:10 Random Glucose 95 mg/dL (74-106) 02/06/18 08:10 Hemoglobin A1c % 5.9 % (4.8-6.0) 02/04/18 05:30 Calcium 9.8 mg/dL (8.5-10.1) 02/06/18 08:10 Phosphorus 3.7 mg/dL (2.5-4.9) 02/06/18 08:10 Magnesium 2.0 mg/dL (1.8-2.4) 02/06/18 08:10 Total Bilirubin 0.3 mg/dL (0.2-1.0) 02/06/18 08:10 AST 46 U/L (15-37) H 02/06/18 08:10 ALT 42 U/L (12-78) 02/06/18 08:10 Alkaline Phosphatase 61 U/L (45-117) 02/06/18 08:10 Creatine Kinase 69 IU/L (26-192) 02/02/18 18:50 Troponin I < 0.02 ng/ml (0.00-0.05) 02/03/18 05:30 Total Protein 8.4 g/dl (6.4-8.2) H 02/06/18 08:10 Albumin 3.7 g/dl (3.4-5.0) 02/06/18 08:10 Triglycerides Cancelled 02/03/18 10:55 Cholesterol Cancelled 02/03/18 10:55 Total LDL Cholesterol Cancelled 02/03/18 10:55 HDL Cholesterol Cancelled 02/03/18 10:55 Lipase 83 U/L (73-393) 02/04/18 05:30 TSH Cancelled 02/03/18 10:55 Free T3 2.4 pg/ml (2.0-4.4) 02/03/18 06:00 Home Medications Medication Instructions Recorded NK [No Known Home Medication] 02/02/18 PE: per resident's note Nellie Kemp Name: PATTIE ESPINOZA DEPARTMENT OF RADIOLOGY Phys: Josue Millard RESIDENT : 1965 Age: 52 Sex: F [facility] Acct: [id number] Loc: [address] Exam Date: 02/04/18 Status: [place] [address] Unit Number: [id number] EXAM#: TYPE/EXAM: RESULT: MRI/ABDOMEN MRI W/O CONTRAST /MRCP MRI of the abdomen and MRCP. Medical history: Abdominal mass suspected on recent CTA of the chest. Coronal and axial T1, T2, in phase, out of phase weighted images were obtained followed with MRCP weighted images. There is no evidence of hepatosplenomegaly. MRCP is unremarkable with no evidence of dilatation of the intrahepatic biliary radicles, common hepatic or common bile ducts. No evidence of choledocholithiasis. No evidence of pancreatic enlargement or pancreatic duct dilatation. There are multiple small pancreatic cysts of within atrophic pancreas compatible IPM. There is a 6.3 x 5 x 2.5 cm sharply delineated mass in the retroperitoneum anterior to the inferior vena cava and separate from the uncinate process which is displaced anteriorly. There was no suspicious perifocal infiltrative changes in the retroperitoneal fat. The lesion is benign in its appearance and may represent a retroperitoneal cyst or less likely descending duodenum diverticulum.. MRI with contrast however to be considered for further and definitive evaluation. Multiple small renal cysts with no evidence of obstructive uropathy. Impression: 6.3 x 5 x 2 5 cm sharply delineated mass in the retroperitoneum anterior to the inferior vena cava behind the uncinate process of the pancreas with no suspicious perifocal fatty infiltration changes. The lesion is benign in appearance and may be related to a retroperitoneal cyst or less likely to a duodenal diverticulum,. MRI with contrast to be considered for further and definitive evaluation. MR CP unremarkable with no evidence of dilatation of the common hepatic or common bile duct. No evidence of choledocholithiasis. Multiple small cysts within the pancreas which is atrophic. No suspicious retroperitoneal lymphadenopathy. No suspicious solid neoplasm of the liver pancreas or spleen.. Reported By: Vivek Garcia MD 02/05/18 1048 ASSESSMENT AND PLAN: Patient is a 52 year old woman with PMHx PTSD, GERD, Hernia, Right sided breast CA s/p mastectomy (radio and chemotherapy), who presents to the ER complaining of chest pain for 1 day. # Acute Chest pain OH is rulled out, : CE q6x 2, EKG, Cardio consult appreciated. Echo nl, except mild AR. # Hypoechoec mass like density from posterior inferioir margin of Pancreatric head cannot r/o neoplasm by US, MRCP is ordered , and patient was seen by GI. MRcp: No evidence of pancreatic enlargement or pancreatic duct dilatation. There are multiple small pancreatic cysts of within atrophic pancreas compatible IPM. There is a 6.3 x 5 x 2.5 cm sharply delineated mass in the retroperitoneum anterior to the inferior vena cava and separate from the uncinate process which is displaced anteriorly. will get IR involved for Bx and Dr. Larry for further evaluation. Patient has a hx of Breast CAncer. DVT prophylaxis - Heparin 5000u sq tid. Advance directives - Full code
[2018-02-07] MEDS: HEPARIN NA (PORCINE) 5,000 UNITS/ML 1ML VIAL SQ SCH ×2 (05:36→15:24)
[2018-02-07 08:24] LABS: HEMATOCRIT 34.5 % (32.4-45.2); HEMOGLOBIN 11.8 GM/dL (10.7-15.3); MCH 33.2 pg (25.7-33.7); MCHC 34.3 g/dl (32.0-36.0); MEAN CELL VOLUME 96.9 fl (80-96); MEAN PLT VOLUME 8.5 fl (7.5-11.1); PLATELET COUNT 237 K/MM3 (134-434); RBC 3.56 M/mm3 (3.60-5.2); RDW 13.3 % (11.6-15.6); WHITE BLOOD COUNT 4.9 K/mm3 (4.0-10.0)
--- NOTE | 2018-02-07 09:34 | PN ---
Progress Note (short form) - Note Progress Note: Resting in NAD on RA. Using Incentive Spirometer well. CP has essentially resolved. Nervous about biopsy today. No acute events overnight. Intake & Output 02/04/18 02/05/18 02/06/18 02/07/18 23:59 23:59 23:59 23:59 Intake Total 1140 590 350 100 Output Total 1 1 Balance 1140 590 349 99 Last Vital Signs Temp Pulse Resp BP Pulse Ox 97.9 F 59 L 18 107/63 98 02/07/18 06:00 02/07/18 06:00 02/07/18 06:00 02/07/18 06:00 02/06/18 21:00 Active Medications Acetaminophen (Tylenol -) 650 mg PO Q6H PRN PRN Reason: PAIN LEVEL 1 - 3 Bacitracin (Bacitracin -) 1 applic TP BID [facility] Last Admin: 02/06/18 22:28 Dose: 1 applic Benzocaine/Menthol (Cepacol Lozenge -) 1 each MM DAILY PRN PRN Reason: SORE THROAT Heparin Sodium (Porcine) (Heparin -) 5,000 unit SQ TID [facility] Last Admin: 02/07/18 05:36 Dose: Not Given Pantoprazole Sodium (Protonix -) 40 mg PO DAILY [facility] Last Admin: 02/06/18 09:49 Dose: 40 mg Gen: NAD at rest Heart: RRR Lung: decreased breath sounds at the bases Abd: soft, nontender Ext: no edema Laboratory Results - last 24 hr 02/07/18 06:45 WBC 4.9 RBC 3.56 L Hgb 11.8 Hct 34.5 MCV 96.9 H MCH 33.2 MCHC 34.3 RDW 13.3 Plt Count 237 MPV 8.5 Problem List - Problems (1) Atypical chest pain Code(s): R07.89 - OTHER CHEST PAIN (2) Atelectasis Code(s): J98.11 - ATELECTASIS IMP: Atypical Chest Pain Bibasilar Atelectasis likely due to splinting due to chest pain Retroperitoneal Mass h/o Breast Ca GERD Hiatal Hernia - for CT guided needle biopsy - pain control - incentive spirometry - DVT prophylaxis Dr Wilson
[2018-02-07] MEDS: BACITRACIN 15 GM TUBE TOPICAL OINTMENT TP SCH ×2 (10:10→21:21)
--- NOTE | 2018-02-07 12:17 | PN ---
Progress Note, Physician History of Present Illness: The patient is a 52 year old female, with a significant past medical history of PTSD, GERD, Hernia, Right sided breast CA s/p lumpectomy, who presents to the ED complaining of chest pain since last night. She describes her chest pain as a stabbing sensation, 8/10 in severity. She denies any radiation or modifying factors. She also reports a dry cough and mild chills associated with her chief complaint. She notes that she took Tylenol today around 12pm. The patient denies shortness of breath, headache and dizziness. Denies fever, nausea, vomiting, diarrhea or constipation. Allergies: None Past surgical history: Right lumpectomy, hysterectomy Social History: No alcohol, tobacco or drug use reported (Mikey Ma) - Current Medication List Current Medications: Active Medications Acetaminophen (Tylenol -) 650 mg PO Q6H PRN PRN Reason: PAIN LEVEL 1 - 3 Bacitracin (Bacitracin -) 1 applic TP BID [facility] Last Admin: 02/06/18 22:28 Dose: 1 applic Benzocaine/Menthol (Cepacol Lozenge -) 1 each MM DAILY PRN PRN Reason: SORE THROAT Heparin Sodium (Porcine) (Heparin -) 5,000 unit SQ TID [facility] Last Admin: 02/07/18 05:36 Dose: Not Given Pantoprazole Sodium (Protonix -) 40 mg PO DAILY [facility] Last Admin: 02/06/18 09:49 Dose: 40 mg - Objective Vital Signs: Vital Signs Temperature 97.9 F 02/07/18 06:00 Pulse Rate 59 L 02/07/18 06:00 Respiratory Rate 18 02/07/18 06:00 Blood Pressure 107/63 02/07/18 06:00 O2 Sat by Pulse Oximetry (%) 98 02/06/18 21:00 Eyes: Yes: WNL, Conjunctiva Clear, EOM Intact HENT: Yes: WNL, Atraumatic, Normocephalic Neck: Yes: WNL, Supple, Trachea Midline Cardiovascular: Yes: WNL, Regular Rate and Rhythm Respiratory: Yes: WNL, Regular, CTA Bilaterally Gastrointestinal: Yes: WNL, Normal Bowel Sounds Genitourinary: Yes: WNL Musculoskeletal: Yes: WNL Extremities: Yes: WNL Edema: No Integumentary: Yes: WNL Neurological: Yes: WNL, Alert, Oriented ...Motor Strength: WNL Psychiatric: Yes: WNL Labs: CBC, BMP 02/07/18 06:45 02/06/18 08:10 INR, PTT INR 1.12 (0.83-1.09) H 02/02/18 18:50 Problem List - Problems (1) Atelectasis Code(s): J98.11 - ATELECTASIS (2) Atypical chest pain Code(s): R07.89 - OTHER CHEST PAIN (3) Chest pain Code(s): R07.9 - CHEST PAIN, UNSPECIFIED Qualifiers: Chest pain type: unspecified Qualified Code(s): R07.9 - Chest pain, unspecified Assessment/Plan Atypical Chest Pain Bibasilar Atelectasis h/o Breast Ca GERD Hiatal Hernia r/o mi neg echo nl EST treadmill stress test negative
--- NOTE | 2018-02-07 13:31 | PN ---
Physical Exam: SUBJECTIVE: Hematology-oncology Patient seen and examined Feels better. States pain has significantly improved. Posted for biopsy of retroperitoneal cystic lesion. OBJECTIVE: Vital Signs Period Temp Pulse Resp BP Sys/Arroyo Pulse Ox Last 24 Hr 97.9 F-98.7 F 59-76 16-18 88-121/53-74 98 GENERAL: The patient is awake, alert, and fully oriented, in no acute distress. HEAD: Normal with no signs of trauma. EYES: conjunctiva clear. No ptosis. ENT: oropharynx clear without exudates, moist mucous membranes. NECK: Trachea midline, full range of motion, supple. LUNGS: Breath sounds equal, clear to auscultation bilaterally, no wheezes, no crackles, no accessory muscle use. HEART: Regular rate and rhythm, S1, S2 without murmur, ABDOMEN: Soft, nontender, normoactive bowel sounds, no guarding, no rebound, no hepatosplenomegaly, EXTREMITIES: 2+ pulses, warm, well-perfused, no edema. NEUROLOGICAL: Normal speech, gait not PSYCH: Normal mood, normal affect. SKIN: Warm, dry, Laboratory Results - last 24 hr 02/07/18 02/07/18 06:45 06:45 WBC 4.9 RBC 3.56 L Hgb 11.8 Hct 34.5 MCV 96.9 H MCH 33.2 MCHC 34.3 RDW 13.3 Plt Count 237 MPV 8.5 Vitamin B12 1362 H Serum Folate 49 H Active Medications Generic Name Dose Route Start Last Admin Trade Name Freq PRN Reason Stop Dose Admin Acetaminophen 650 mg 02/05/18 12:06 Tylenol - PO Q6H PRN PAIN LEVEL 1 - 3 Bacitracin 1 applic 02/05/18 14:00 02/06/18 22:28 Bacitracin - TP 1 applic BID [facility]LI Administration Benzocaine/Menthol 1 each 02/05/18 12:06 Cepacol Lozenge - MM DAILY PRN SORE THROAT Heparin Sodium (Porcine) 5,000 unit 02/05/18 14:00 02/07/18 05:36 Heparin - SQ Not Given TID CARLI Pantoprazole Sodium 40 mg 02/06/18 10:00 02/06/18 09:49 Protonix - PO 40 mg DAILY [facility] Administration ASSESSMENT/PLAN: 52 y/o female presenting with CP, prior Hx of breast cancer s/ p mastectomy, TRAM flap reconstruction and abdominal bloating. Imaging performed during this admission shows a 6.3 X5X2.5 cms sharply delineated mass in the retroperitoneum, anterior to the IVC, behind the uncinate process of the pancreas, lesion is benign in appearance. Retroperitoneal cyst vs. duodenenal diverticulum. - MRI shows multiple small pancreatic cysts with retroperitoeal 6.3x2.5 cm lesion likely cystic. Cystic pancreatic can be because of serous cyst, mucinous cyst. Patient has no symptoms of early satiety, obstruction, jaundice. Patient was posted for IR guided biopsy from the lesion. RN informed that our IR don't do biopsies from pancreatic lesions. - Discussed with radiology that small cysts are mucinous but not sure about large cyst. - GI follow up. - Get MRI with contrast. - If diagnoses can not be made with MRI with contrast consider EUS guided biopsy. Visit type - Emergency Visit Emergency Visit: Yes ED Registration Date: 02/04/18 Care time: The patient presented to the Emergency Department on the above date and was hospitalized for further evaluation of their emergent condition. - New Patient This patient is new to me today: Yes Date on this admission: 02/08/18 - Critical Care Critical Care patient: No
--- NOTE | 2018-02-07 14:14 | PN ---
Progress Note (short form) - Note Progress Note: MRCP report noted. MRI of the abdomen ordered. Problem List - Problems (1) Atypical chest pain Code(s): R07.89 - OTHER CHEST PAIN
[2018-02-07] MEDS: PANTOPRAZOLE 40 MG TABLET (FP) PO SCH (15:24)
--- NOTE | 2018-02-07 16:12 | PN ---
Physical Exam: SUBJECTIVE: Patient seen and examined at bedside. No acute events overnight. OBJECTIVE: Vital Signs Vital Signs - 8 hr 02/07/18 15:23 Temperature 99.0 F Pulse Rate 63 Respiratory 20 Rate Blood Pressure 100/64 GENERAL:AAOx3. NAD. HEENT: AT/NC. Moist mucus membranes. No erythema noted in oropharynx. NECK: Normal range of motion, supple without lymphadenopathy, JVD, or masses. LUNGS:CTA B/L. No wheezes, rhonchi, rales noted. HEART: RRR. Normal S1, S2. No murmurs, rubs, or gallop noted. No reproducible chest tenderness. ABDOMEN: Soft nontender, nondistended. Normoactive bowel sounds in all 4Q's. No masses or bruits noted. UPPER EXTREMITIES: warm, well-perfused. No cyanosis. No clubbing. No peripheral edema. 5/5 muscle strength b/l. LOWER EXTREMITIES: warm, well-perfused. No calf tenderness. No peripheral edema. 5/5 muscle strength b/l. NEUROLOGICAL: Cranial nerves II-XII grossly intact. Normal speech. PSYCHIATRIC: Cooperative. Good eye contact. Appropriate mood and affect. SKIN: Warm, dry, normal turgor, no rashes or lesions noted, normal capillary refill. Laboratory Results - last 24 hr 02/07/18 02/07/18 06:45 06:45 WBC 4.9 RBC 3.56 L Hgb 11.8 Hct 34.5 MCV 96.9 H MCH 33.2 MCHC 34.3 RDW 13.3 Plt Count 237 MPV 8.5 Vitamin B12 1362 H Serum Folate 49 H Active Medications Generic Name Dose Route Start Last Admin Trade Name Freq PRN Reason Stop Dose Admin Acetaminophen 650 mg 02/05/18 12:06 Tylenol - PO Q6H PRN PAIN LEVEL 1 - 3 Bacitracin 1 applic 02/05/18 14:00 02/07/18 10:10 Bacitracin - TP 1 applic BID [facility] Administration Benzocaine/Menthol 1 each 02/05/18 12:06 Cepacol Lozenge - MM DAILY PRN SORE THROAT Heparin Sodium (Porcine) 5,000 unit 02/05/18 14:00 02/07/18 15:24 Heparin - SQ Not Given TID CARLI Pantoprazole Sodium 40 mg 02/06/18 10:00 02/07/18 15:24 Protonix - PO 40 mg DAILY [facility] Administration MRCP: 6.3 x 5 x 2 5 cm sharply delineated mass in the retroperitoneum anterior to the inferior vena cava behind the uncinate process of the pancreas with no suspicious perifocal fatty infiltration changes. The lesion is benign in appearance and may be related to a retroperitoneal cyst or less likely to a duodenal diverticulum,. MRI with contrast to be considered for further and definitive evaluation. MRCP unremarkable with no evidence of dilatation of the common hepatic or common bile duct. No evidence of choledocholithiasis. Multiple small cysts within the pancreas which is atrophic. No suspicious retroperitoneal lymphadenopathy. No suspicious solid neoplasm of the liver pancreas or spleen.. ECG: NSR. Possible anterior infarct. When compared with ECG of 02/02/18, no significant change was found. CT Chest: No evidence of pulm embolus within main pulm artery and its proximal branches, b/l. Bibasal atelectatic changes. Cannot r/o superimposed infiltrate. Correlate clinically for f/u. small hiatus hernia. ECHO: LV size, thickness, fxn are normal. RV is normal in size and fxn. Mild AR. RUQ U/S: No gallstones are identified. Slightly coarse echotexture of the liver suggestive of mild fatty infiltration versus hepatocellular disease. Please correlate with liver enzymes. Hypoechoic masslike density inseparable from posterior inferior margin of the right pancreatic head measuring 6.4 x 3.4 x 2.8 cm. Differential diagnosis includes an exophytic pancreatic head mass , a lymph node and the possibility of a large duodenal diverticulum. Further evaluation with MRI is recommended. In retrospect, this lesion was partially included on prior CT scan of the chest dated 02/03/2018 where a questionable plane between its anterior margin and posterior margin of the pancreatic head/uncinate process is present. Again correlation with MRI of the abdomen would be the study of choice for further evaluation. ASSESSMENT/PLAN: 52F with PMH right breast CA s/p mastectomy (remission for 19 years) with hiatal hernia and GERD admitted for obs to r/o cardiac event vs. GI etiology. #Retroperitoneal cyst vs. Duodenal Diverticulum; Benign mass behind pancreas found on MRCP -Pt was supposed to get IR biopsy done for retroperitoneal mass behind pancreas , but spoke to IR and this procedure is not done in hospital. Spoke with GI for need of further imaging prior to evaluate mass found on MRCP and MRI of Abd w/ contrast was recommended. -f/u MRI of Abd w/ contrast report and d/w GI possible need for biopsy of unknown pancreatic mass endoscopically #Atypical chest pain likely 2/2 GI/pulm etiology; Improved since admission. Unlikely cardiac as chest pain is reproducible, trops neg x2, ECG showed no acute infarcts. Could possibly be severe GERD sx with hx of hiatal hernia. Also , per cardio eval, pt did not have an acute WA. -cont Tylenol 650 mg PO Q6H for pain -Per cardio (Dr. Torres): Stress test--Negative. maximal ETT for ischemia, appropriate HR and BP response to exercise, average exercise capacity. Normal echo. -Per pulm (Dr. Loomis): Bibasilar atelectasis likely from splinting from chest pain -IS #GERD/Hiatal Hernia -cont Protonix 40 mg PO QD #DVT Prophylaxis -Heparin 5000 units SQ TID #FEN -no IVf -lytes wnl -Regular diet dispo -cont to monitor on medsurg Visit type - Emergency Visit Emergency Visit: Yes ED Registration Date: 02/04/18 Care time: The patient presented to the Emergency Department on the above date and was hospitalized for further evaluation of their emergent condition. - New Patient This patient is new to me today: No - Critical Care Critical Care patient: No
--- NOTE | 2018-02-07 17:02 | TRE ---
Protocol Name : JI Max Work Load (METS*10) : 101 Time In Exercise Phase : 00:08:35 Max. Systolic BP : 158 mmHg Max Diastolic BP : 72 mmHg Max Heart Rate : 144 BPM Max Predicted Heart Rate : 166 BPM Attending Physician : DR. CAIN Reason For Termination : Target Heart Rate Achieved Reason for Test : CHEST PAIN Stress Protocol : JI Rest HR : 84 BPM PeakEx METs : 10.1 METS Arrhythmias : Ventricular Premature Beats, Isolated Resting ECG : Normal Recovery ECG Response (OLD) : Overall Impression : Normal stress test Chest Pain : No Chest Pain HR Response To Exercise : Normal Overall HR Response To Exercise BP Response To Exercise : Normal Resting BP with Appropriate Response Functional Capacity : Above Average (> 20%) Diagnosis : 1. NEGATIVE STRESS TEST 2. APPROPRIATE BLOOD PRESSURE RESPONSE 3. FAIR EXERCISE TOLERANCE AND CAPACITY. PATIENT EXERCISED 8 MIN 35 SEC INTO STAGE 3 JI PROTOCOL AND ACHIEVED 86% MPTHR 4. NO SIGNIFICANT ECG ABNORMALITY Confirmed by JOSEPH MARTIN MD ([id number]) on 02/07/2018 5:02:26 PM
--- NOTE | 2018-02-07 19:25 | PN ---
Teaching Attending Note Name of Resident: Hafsa Vitale ATTENDING PHYSICIAN STATEMENT I saw and evaluated the patient. I reviewed the resident's note and discussed the case with the resident. I agree with the resident's findings and plan as documented. SUBJECTIVE: Patient is comfortable , no new complain. OBJECTIVE: Vital Signs Temperature 99.0 F 02/07/18 15:23 Pulse Rate 63 02/07/18 15:23 Respiratory Rate 20 02/07/18 15:23 Blood Pressure 100/64 02/07/18 15:23 O2 Sat by Pulse Oximetry (%) 98 02/06/18 21:00 CBCD WBC 4.9 K/mm3 (4.0-10.0) 02/07/18 06:45 RBC 3.56 M/mm3 (3.60-5.2) L 02/07/18 06:45 Hgb 11.8 GM/dL (10.7-15.3) 02/07/18 06:45 Hct 34.5 % (32.4-45.2) 02/07/18 06:45 MCV 96.9 fl (80-96) H 02/07/18 06:45 MCHC 34.3 g/dl (32.0-36.0) 02/07/18 06:45 RDW 13.3 % (11.6-15.6) 02/07/18 06:45 Plt Count 237 K/MM3 (134-434) 02/07/18 06:45 MPV 8.5 fl (7.5-11.1) 02/07/18 06:45 CMP Sodium 139 mmol/L (136-145) 02/06/18 08:10 Potassium 4.3 mmol/L (3.5-5.1) 02/06/18 08:10 Chloride 105 mmol/L (98-107) 02/06/18 08:10 Carbon Dioxide 26 mmol/L (21-32) 02/06/18 08:10 Anion Gap 8 (8-16) 02/06/18 08:10 BUN 16 mg/dL (7-18) 02/06/18 08:10 Creatinine 0.9 mg/dL (0.55-1.02) 02/06/18 08:10 Creat Clearance w eGFR > 60 (>60) 02/06/18 08:10 Random Glucose 95 mg/dL (74-106) 02/06/18 08:10 Calcium 9.8 mg/dL (8.5-10.1) 02/06/18 08:10 Total Bilirubin 0.3 mg/dL (0.2-1.0) 02/06/18 08:10 AST 46 U/L (15-37) H 02/06/18 08:10 ALT 42 U/L (12-78) 02/06/18 08:10 Alkaline Phosphatase 61 U/L (45-117) 02/06/18 08:10 Total Protein 8.4 g/dl (6.4-8.2) H 02/06/18 08:10 Albumin 3.7 g/dl (3.4-5.0) 02/06/18 08:10 CARDIAC ENZYMES Creatine Kinase 69 IU/L (26-192) 02/02/18 18:50 Troponin I < 0.02 ng/ml (0.00-0.05) 02/03/18 05:30 Current Medications Generic Name Dose Route Start Last Admin Trade Name Freq PRN Reason Stop Dose Admin Acetaminophen 650 mg 02/05/18 12:06 Tylenol - PO Q6H PRN PAIN LEVEL 1 - 3 Bacitracin 1 applic 02/05/18 14:00 02/07/18 10:10 Bacitracin - TP 1 applic BID [facility] Administration Benzocaine/Menthol 1 each 02/05/18 12:06 Cepacol Lozenge - MM DAILY PRN SORE THROAT Heparin Sodium (Porcine) 5,000 unit 02/05/18 14:00 02/07/18 15:24 Heparin - SQ Not Given TID [facility] Pantoprazole Sodium 40 mg 02/06/18 10:00 02/07/18 15:24 Protonix - PO 40 mg DAILY [facility] Administration Home Medications Medication Instructions Recorded NK [No Known Home Medication] 02/02/18 PE: per resident's note Nellie Kemp Name: PATTIE ESPINOZA DEPARTMENT OF RADIOLOGY Phys: Josue Millard RESIDENT : 1965 Age: 52 Sex: F [facility] Acct: [id number] Loc: [id number] [facility] Exam Date: 02/04/18 Status: [place] [address] Unit Number: [id number] EXAM#: TYPE/EXAM: RESULT: [id number] MRI/ABDOMEN MRI W/O CONTRAST /MRCP MRI of the abdomen and MRCP. Medical history: Abdominal mass suspected on recent CTA of the chest. Coronal and axial T1, T2, in phase, out of phase weighted images were obtained followed with MRCP weighted images. There is no evidence of hepatosplenomegaly. MRCP is unremarkable with no evidence of dilatation of the intrahepatic biliary radicles, common hepatic or common bile ducts. No evidence of choledocholithiasis. No evidence of pancreatic enlargement or pancreatic duct dilatation. There are multiple small pancreatic cysts of within atrophic pancreas compatible IPM. There is a 6.3 x 5 x 2.5 cm sharply delineated mass in the retroperitoneum anterior to the inferior vena cava and separate from the uncinate process which is displaced anteriorly. There was no suspicious perifocal infiltrative changes in the retroperitoneal fat. The lesion is benign in its appearance and may represent a retroperitoneal cyst or less likely descending duodenum diverticulum.. MRI with contrast however to be considered for further and definitive evaluation. Multiple small renal cysts with no evidence of obstructive uropathy. Impression: 6.3 x 5 x 2 5 cm sharply delineated mass in the retroperitoneum anterior to the inferior vena cava behind the uncinate process of the pancreas with no suspicious perifocal fatty infiltration changes. The lesion is benign in appearance and may be related to a retroperitoneal cyst or less likely to a duodenal diverticulum,. MRI with contrast to be considered for further and definitive evaluation. MR CP unremarkable with no evidence of dilatation of the common hepatic or common bile duct. No evidence of choledocholithiasis. Multiple small cysts within the pancreas which is atrophic. No suspicious retroperitoneal lymphadenopathy. No suspicious solid neoplasm of the liver pancreas or spleen.. Reported By: Vivek Garcia MD 02/05/18 1048 ASSESSMENT AND PLAN: Patient is a 52 year old woman with PMHx PTSD, GERD, Hernia, Right sided breast CA s/p mastectomy (radio and chemotherapy), who presents to the ER complaining of chest pain for 1 day. # Acute Chest pain NH is rulled out : CE q6x 2, EKG, Cardio consult appreciated. Echo nl, except mild AR. # Hypoechoec mass like density from posterior inferioir margin of Pancreatric head cannot r/o neoplasm by US, MRCP is ordered , and patient was seen by GI. MRcp: No evidence of pancreatic enlargement or pancreatic duct dilatation. There are multiple small pancreatic cysts of within atrophic pancreas compatible IPM. There is a 6.3 x 5 x 2.5 cm sharply delineated mass in the retroperitoneum anterior to the inferior vena cava and separate from the uncinate process which is displaced anteriorly., IR is unable to do Bx , so was ordered MRI by GI, Dr. Larry evaluated the patient .Patient has a hx of Breast CAncer. Cystic pancreatic can be serous cyst vs mucinous cyst. Get MRI with contrast. If diagnoses can not be made with MRI with contrast consider EUS guided biopsy. DVT prophylaxis - Heparin 5000u sq tid. Advance directives - Full code
[2018-02-08] MEDS: HEPARIN NA (PORCINE) 5,000 UNITS/ML 1ML VIAL SQ SCH ×3 (06:05→21:32)
--- NOTE | 2018-02-08 07:55 | PN ---
Progress Note (short form) - Note Progress Note: Patient seen and examined Complains of some tinnitus in right ear, nausea, shortness of breath , sinus congestion, chest discomfort. Last Vital Signs Temp Pulse Resp BP Pulse Ox 97.5 F L 63 20 113/58 98 02/08/18 06:25 02/08/18 06:25 02/08/18 06:25 02/08/18 06:25 02/07/18 21:00 HEENT: WALDO, EOM Intact Oropharynx: No thrush, No mucositis Neck: Supple Nodes: Without adenopathy Breasts: Without masses; right breast - s/p reconstruction Cor: RSR, No murmurs, No gallops Lungs: Clear to P&A Abd: Soft, Normal bowel sounds, No organomegaly Ext:No significant edema Skin: No rashes, Integument intact CBC, BMP 02/07/18 06:45 02/06/18 08:10 Current Medications Generic Name Dose Route Start Last Admin Trade Name Freq PRN Reason Stop Dose Admin Acetaminophen 650 mg 02/05/18 12:06 Tylenol - PO Q6H PRN PAIN LEVEL 1 - 3 Bacitracin 1 applic 02/05/18 14:00 02/07/18 21:21 Bacitracin - TP 1 applic BID CARLI Administration Benzocaine/Menthol 1 each 02/05/18 12:06 Cepacol Lozenge - MM DAILY PRN SORE THROAT Heparin Sodium (Porcine) 5,000 unit 02/05/18 14:00 02/08/18 06:05 Heparin - SQ Not Given TID CARLI Pantoprazole Sodium 40 mg 02/06/18 10:00 02/07/18 15:24 Protonix - PO 40 mg DAILY CARLI Administration Impression Atypical chest pains Past history of breast ca treated with lumpectomy followed by mastectomy, chemotherpapy, tamoxifen then femara. Tamoxifen induced endometrial changes- resulting in TAHBSO Currently with retroperitoneal mass- to be further identified Ultimately need to define nature of mass and for tissue --?? I.R vs EUS directed biopsy.
--- NOTE | 2018-02-08 09:20 | PN ---
Teaching Attending Note Name of Resident: Hafsa Vitale ATTENDING PHYSICIAN STATEMENT I saw and evaluated the patient. I reviewed the resident's note and discussed the case with the resident. I agree with the resident's findings and plan as documented. SUBJECTIVE: Comfortable with no acute distress. OBJECTIVE: Vital Signs Temperature 97.5 F L 02/08/18 06:25 Pulse Rate 63 02/08/18 06:25 Respiratory Rate 20 02/08/18 06:25 Blood Pressure 113/58 02/08/18 06:25 O2 Sat by Pulse Oximetry (%) 98 02/07/18 21:00 CBCD WBC 4.9 K/mm3 (4.0-10.0) 02/07/18 06:45 RBC 3.56 M/mm3 (3.60-5.2) L 02/07/18 06:45 Hgb 11.8 GM/dL (10.7-15.3) 02/07/18 06:45 Hct 34.5 % (32.4-45.2) 02/07/18 06:45 MCV 96.9 fl (80-96) H 02/07/18 06:45 MCHC 34.3 g/dl (32.0-36.0) 02/07/18 06:45 RDW 13.3 % (11.6-15.6) 02/07/18 06:45 Plt Count 237 K/MM3 (134-434) 02/07/18 06:45 MPV 8.5 fl (7.5-11.1) 02/07/18 06:45 CMP Sodium 139 mmol/L (136-145) 02/06/18 08:10 Potassium 4.3 mmol/L (3.5-5.1) 02/06/18 08:10 Chloride 105 mmol/L (98-107) 02/06/18 08:10 Carbon Dioxide 26 mmol/L (21-32) 02/06/18 08:10 Anion Gap 8 (8-16) 02/06/18 08:10 BUN 16 mg/dL (7-18) 02/06/18 08:10 Creatinine 0.9 mg/dL (0.55-1.02) 02/06/18 08:10 Creat Clearance w eGFR > 60 (>60) 02/06/18 08:10 Random Glucose 95 mg/dL (74-106) 02/06/18 08:10 Calcium 9.8 mg/dL (8.5-10.1) 02/06/18 08:10 Total Bilirubin 0.3 mg/dL (0.2-1.0) 02/06/18 08:10 AST 46 U/L (15-37) H 02/06/18 08:10 ALT 42 U/L (12-78) 02/06/18 08:10 Alkaline Phosphatase 61 U/L (45-117) 02/06/18 08:10 Total Protein 8.4 g/dl (6.4-8.2) H 02/06/18 08:10 Albumin 3.7 g/dl (3.4-5.0) 02/06/18 08:10 CARDIAC ENZYMES Creatine Kinase 69 IU/L (26-192) 02/02/18 18:50 Troponin I < 0.02 ng/ml (0.00-0.05) 02/03/18 05:30 Current Medications Generic Name Dose Route Start Last Admin Trade Name Freq PRN Reason Stop Dose Admin Acetaminophen 650 mg 02/05/18 12:06 Tylenol - PO Q6H PRN PAIN LEVEL 1 - 3 Bacitracin 1 applic 02/05/18 14:00 02/07/18 21:21 Bacitracin - TP 1 applic BID CARLI Administration Benzocaine/Menthol 1 each 02/05/18 12:06 Cepacol Lozenge - MM DAILY PRN SORE THROAT Heparin Sodium (Porcine) 5,000 unit 02/05/18 14:00 02/08/18 06:05 Heparin - SQ Not Given TID CARLI Pantoprazole Sodium 40 mg 02/06/18 10:00 02/07/18 15:24 Protonix - PO 40 mg DAILY CARLI Administration Home Medications Medication Instructions Recorded NK [No Known Home Medication] 02/02/18 PE: per resident's note Nellie Kemp Name: PATTIE ESPINOZA DEPARTMENT OF RADIOLOGY Phys: Josue Millard RESIDENT : 1965 Age: 52 Sex: F [facility] Acct: [id number] Loc: [id number] [facility] Exam Date: 02/04/18 Status: [place] [address] Unit Number: [id number] EXAM#: TYPE/EXAM: RESULT: [id number] MRI/ABDOMEN MRI W/O CONTRAST /MRCP MRI of the abdomen and MRCP. Medical history: Abdominal mass suspected on recent CTA of the chest. Coronal and axial T1, T2, in phase, out of phase weighted images were obtained followed with MRCP weighted images. There is no evidence of hepatosplenomegaly. MRCP is unremarkable with no evidence of dilatation of the intrahepatic biliary radicles, common hepatic or common bile ducts. No evidence of choledocholithiasis. No evidence of pancreatic enlargement or pancreatic duct dilatation. There are multiple small pancreatic cysts of within atrophic pancreas compatible IPM. There is a 6.3 x 5 x 2.5 cm sharply delineated mass in the retroperitoneum anterior to the inferior vena cava and separate from the uncinate process which is displaced anteriorly. There was no suspicious perifocal infiltrative changes in the retroperitoneal fat. The lesion is benign in its appearance and may represent a retroperitoneal cyst or less likely descending duodenum diverticulum.. MRI with contrast however to be considered for further and definitive evaluation. Multiple small renal cysts with no evidence of obstructive uropathy. Impression: 6.3 x 5 x 2 5 cm sharply delineated mass in the retroperitoneum anterior to the inferior vena cava behind the uncinate process of the pancreas with no suspicious perifocal fatty infiltration changes. The lesion is benign in appearance and may be related to a retroperitoneal cyst or less likely to a duodenal diverticulum,. MRI with contrast to be considered for further and definitive evaluation. MR CP unremarkable with no evidence of dilatation of the common hepatic or common bile duct. No evidence of choledocholithiasis. Multiple small cysts within the pancreas which is atrophic. No suspicious retroperitoneal lymphadenopathy. No suspicious solid neoplasm of the liver pancreas or spleen.. Reported By: Vivek Garcia MD 02/05/18 1048 ASSESSMENT AND PLAN: Patient is a 52 year old woman with PMHx PTSD, GERD, Hernia, Right sided breast CA s/p mastectomy (radio and chemotherapy), who presents to the ER complaining of chest pain for 1 day. # Acute Chest pain DC is rulled out : CE q6x 2, EKG, Cardio consult appreciated. Echo nl, except mild AR. # Hypoechoec mass like density from posterior inferioir margin of Pancreatric head cannot r/o neoplasm by US, MRCP is ordered , and patient was seen by GI. MRcp: No evidence of pancreatic enlargement or pancreatic duct dilatation. There are multiple small pancreatic cysts of within atrophic pancreas compatible IPM. There is a 6.3 x 5 x 2.5 cm sharply delineated mass in the retroperitoneum anterior to the inferior vena cava and separate from the uncinate process which is displaced anteriorly., IR is unable to do Bx , so was ordered MRI by GI, Dr. Larry evaluated the patient .Patient has a hx of Breast CAncer. Cystic pancreatic can be serous cyst vs mucinous cyst. Get MRI with contrast. If diagnoses can not be made with MRI with contrast consider EUS guided biopsy. DVT prophylaxis - Heparin 5000u sq tid. Advance directives - Full code
--- NOTE | 2018-02-08 10:18 | PN ---
Progress Note (short form) - Note Progress Note: No acute events overnight. NAD on RA. CP resolving. Intake & Output 02/05/18 02/06/18 02/07/18 02/08/18 23:59 23:59 23:59 23:59 Intake Total 590 350 600 Output Total 1 1 Balance 590 349 599 Last Vital Signs Temp Pulse Resp BP Pulse Ox 97.5 F L 63 20 113/58 98 02/08/18 06:25 02/08/18 06:25 02/08/18 06:25 02/08/18 06:25 02/07/18 21:00 Active Medications Acetaminophen (Tylenol -) 650 mg PO Q6H PRN PRN Reason: PAIN LEVEL 1 - 3 Bacitracin (Bacitracin -) [address] [facility] Last Admin: 02/07/18 21:21 Dose: 1 applic Benzocaine/Menthol (Cepacol Lozenge -) 1 each MM DAILY PRN PRN Reason: SORE THROAT Heparin Sodium (Porcine) (Heparin -) 5,[address] [facility] Last Admin: 02/08/18 06:05 Dose: Not Given Pantoprazole Sodium (Protonix -) [address] [facility] Last Admin: 02/07/18 15:24 Dose: 40 mg Gen: NAD at rest Heart: RRR Lung: decreased breath sounds at the bases Abd: soft, nontender Ext: no edema Laboratory Results - last 24 hr 02/06/18 08:10 CA 19-9 Antigen 1 Problem List - Problems (1) Atypical chest pain Code(s): R07.89 - OTHER CHEST PAIN (2) Atelectasis Code(s): J98.11 - ATELECTASIS IMP: Atypical Chest Pain Bibasilar Atelectasis likely due to splinting due to chest pain Retroperitoneal Mass h/o Breast Ca GERD Hiatal Hernia - Workup for retroperitoneal mass ongoing - pain control - incentive spirometry - DVT prophylaxis Dr Wilson
[2018-02-08] MEDS: BACITRACIN 15 GM TUBE TOPICAL OINTMENT TP SCH ×2 (10:21→21:31)
[2018-02-08] MEDS: PANTOPRAZOLE 40 MG TABLET (FP) PO SCH (10:21)
--- NOTE | 2018-02-08 16:45 | DS ---
Physical Exam: SUBJECTIVE: Patient seen and examined. No acute events overnight. OBJECTIVE: Vital Signs Period Temp Pulse Resp BP Sys/Arroyo Pulse Ox Last 24 Hr 97.4 F-98.4 F 63-96 18-20 96-124/53-69 98-98 PHYSICAL EXAM GENERAL:AAOx3. NAD. HEENT: AT/NC. Moist mucus membranes. No erythema noted in oropharynx. NECK: Normal range of motion, supple without lymphadenopathy, JVD, or masses. LUNGS:CTA B/L. No wheezes, rhonchi, rales noted. HEART: RRR. Normal S1, S2. No murmurs, rubs, or gallop noted. No reproducible chest tenderness. ABDOMEN: Soft nontender, nondistended. Normoactive bowel sounds in all 4Q's. No masses or bruits noted. UPPER EXTREMITIES: warm, well-perfused. No cyanosis. No clubbing. No peripheral edema. 5/5 muscle strength b/l. LOWER EXTREMITIES: warm, well-perfused. No calf tenderness. No peripheral edema. 5/5 muscle strength b/l. NEUROLOGICAL: Cranial nerves II-XII grossly intact. Normal speech. PSYCHIATRIC: Cooperative. Good eye contact. Appropriate mood and affect. SKIN: Warm, dry, normal turgor, no rashes or lesions noted, normal capillary refill. LABS Laboratory Results - last 24 hr 02/06/18 08:10 CA 19-9 Antigen 1 HOSPITAL COURSE: Date of Admission:02/04/18 MRCP: 6.3 x 5 x 2 5 cm sharply delineated mass in the retroperitoneum anterior to the inferior vena cava behind the uncinate process of the pancreas with no suspicious perifocal fatty infiltration changes. The lesion is benign in appearance and may be related to a retroperitoneal cyst or less likely to a duodenal diverticulum,. MRI with contrast to be considered for further and definitive evaluation. MRCP unremarkable with no evidence of dilatation of the common hepatic or common bile duct. No evidence of choledocholithiasis. Multiple small cysts within the pancreas which is atrophic. No suspicious retroperitoneal lymphadenopathy. No suspicious solid neoplasm of the liver pancreas or spleen.. ECG: NSR. Possible anterior infarct. When compared with ECG of 02/02/18, no significant change was found. CT Chest: No evidence of pulm embolus within main pulm artery and its proximal branches, b/l. Bibasal atelectatic changes. Cannot r/o superimposed infiltrate. Correlate clinically for f/u. small hiatus hernia. ECHO: LV size, thickness, fxn are normal. RV is normal in size and fxn. Mild AR. RUQ U/S: No gallstones are identified. Slightly coarse echotexture of the liver suggestive of mild fatty infiltration versus hepatocellular disease. Please correlate with liver enzymes. Hypoechoic masslike density inseparable from posterior inferior margin of the right pancreatic head measuring 6.4 x 3.4 x 2.8 cm. Differential diagnosis includes an exophytic pancreatic head mass , a lymph node and the possibility of a large duodenal diverticulum. Further evaluation with MRI is recommended. In retrospect, this lesion was partially included on prior CT scan of the chest dated 02/03/2018 where a questionable plane between its anterior margin and posterior margin of the pancreatic head/uncinate process is present. Again correlation with MRI of the abdomen would be the study of choice for further evaluation. 52F with PMH right breast CA s/p mastectomy (remission for 19 years) with hiatal hernia and GERD admitted for obs to r/o cardiac event. In the ED, ECG was done that showed no acute infarct. Trops were neg. ECG showed no acute infarct. Pt was monitored in telemetry to observe cardiac events. Physical exam revealed reproducible chest pain. Cardio was consulted. Upon cardio eval, pt was not found to have cardiac-related chest pain. A CXR was also done which showed central markings, bibasilar scarring vs atelectasis, unspecified density in RUL. As a result, pulm was consulted for further eval. Pt's reproducible chest pain was thought to be caused by splinting of the chest due to bibasilar atelectasis. A CT was ordered and showed no evidence of an unspecified density, but did reveal small hiatal hernia. Because of pt's hx of GERD and hiatal hernia and persistent complaints of abdominal pain, a RUQ U/s was done that showed a hypoechoic masslike density inseparable from posterior inferior margin of the right pancreatic head measuring 6.4 x 3.4 x 2.8 cm. Differential diagnosis included an exophytic pancreatic head mass , a lymph node and the possibility of a large duodenal diverticulum. GI was consulted for further evaluation. Upon GI recommendation, an MRCP was done that showed 6.3 x 5 x 2 5 cm sharply delineated mass in the retroperitoneum anterior to the inferior vena cava behind the uncinate process of the pancreas with no suspicious perifocal fatty infiltration changes. Due to an unclear etiology of the mass, GI recommended a MRI of Abd w/ contrast. MRI showed lesion identified between the IVC and posterior aspect of uncinate pancreas measuring approximately 4 cm longest in diameter, may be related to enlarged lymph nodes possibility of lymphoma or metastasis to be excluded, biopsy recommended. Upon GI recommendation, pt was advised to follow up outpatient at [facility] for an endoscopic ultrasound-guided biopsy of this mass. She was subsequently discharged with an appointment for this procedure as well as instructions to follow up with her PCP, GI, and cardio. Pt elected to appeal discharge, however she decided to leave the hospital. Date of Discharge: 02/08/18 Minutes to complete discharge: 35 Discharge Summary Reason For Visit: CHEST PAIN Current Active Problems Atelectasis (Acute) Atypical chest pain (Acute) Chest pain (Acute) Condition: Improved - Instructions Diet, Activity, Other Instructions: You were admitted to the hospital for chest pain. You were evaluated by the heart doctor and were not found to have any acute cardiac event as the cause of your chest pain. You were also evaluated by a GI doctor to evaluate your abdominal pain. Upon imaging, you were found to have a mass behind your pancreas that needs further work up. You are being discharged from the hospital with an appointment to follow up with the GI doctor, Dr. Zach Davis, at [facility] for an endoscopic ultrasound-guided biopsy of this mass. You have an appointment with Dr. Zach Davis. Please present to: [address] [facility], [address] [place] [address] Your appointment date and time is: February 23, 2018 at 1:00pm You may contact Dr. Zach Davis's office at . MEDICAL RECOMMENDATIONS Please start taking Pantoprazole 40 mg once a day by mouth. CONSULT RECOMMENDATIONS Please follow up with your primary care physician within 1 week. Please follow up with your GI doctor, Dr. Valenzuela, after getting your biopsy. Please follow up with your picker and packer, Dr. Araya, within 1 week. If you start to experience worsening chest pain, shortness of breath, headaches , dizziness, vision changes, or persistent fever/chills, please go to your nearest emergency room immediately. Referrals: Elliott Valenzuela MD [Staff Physician] - 1 Week Jamel Araya MD [Staff Physician] - 1 Week Cyndie Mancera [Primary Care Provider] - 1 Week Disposition: HOME - Home Medications Comprehensive Discharge Medication List: Ambulatory Orders Pantoprazole Sodium [Protonix -] 40 mg PO DAILY #30 tablet.ec 02/08/18 This patient is new to me today: No Emergency Visit: Yes ED Registration Date: 02/04/18 Care time: The patient presented to the Emergency Department on the above date and was hospitalized for further evaluation of their emergent condition. Critical Care patient: No - Discharge Referral Referred to [facility] Med [facility] No
[2018-02-09] MEDS: HEPARIN NA (PORCINE) 5,000 UNITS/ML 1ML VIAL SQ SCH ×3 (05:36→21:46)
--- NOTE | 2018-02-09 09:11 | PN ---
Progress Note (short form) - Note Progress Note: No acute events overnight. NAD on RA. CP/SOB resolving. Intake & Output 02/06/18 02/07/18 02/08/18 02/09/18 23:59 23:59 23:59 23:59 Intake Total 350 600 750 Output Total 1 1 Balance 349 599 750 Last Vital Signs Temp Pulse Resp BP Pulse Ox 97.9 F 69 20 134/64 98 02/09/18 08:37 02/09/18 08:37 02/09/18 08:37 02/09/18 08:37 02/08/18 21:00 Active Medications Acetaminophen (Tylenol -) 650 mg PO Q6H PRN PRN Reason: PAIN LEVEL 1 - 3 Bacitracin (Bacitracin -) 1 applic TP BID [facility] Last Admin: 02/08/18 21:31 Dose: 1 applic Benzocaine/Menthol (Cepacol Lozenge -) 1 each MM DAILY PRN PRN Reason: SORE THROAT Heparin Sodium (Porcine) (Heparin -) 5,000 unit SQ TID [facility] Last Admin: 02/09/18 05:36 Dose: Not Given Pantoprazole Sodium (Protonix -) 40 mg PO DAILY [facility] Last Admin: 02/08/18 10:21 Dose: 40 mg Gen: NAD at rest Heart: RRR Lung: decreased breath sounds at the bases Abd: soft, nontender Ext: no edema Problem List - Problems (1) Atypical chest pain Code(s): R07.89 - OTHER CHEST PAIN (2) Atelectasis Code(s): J98.11 - ATELECTASIS IMP: Atypical Chest Pain Bibasilar Atelectasis likely due to splinting due to chest pain Retroperitoneal Mass h/o Breast Ca GERD Hiatal Hernia - Workup for retroperitoneal mass ongoing - pain control - incentive spirometry - DVT prophylaxis - No Pulmonary contraindication for D/C Dr Wilson
[2018-02-09] MEDS: PANTOPRAZOLE 40 MG TABLET (FP) PO SCH (10:31)
[2018-02-09] MEDS: BACITRACIN 15 GM TUBE TOPICAL OINTMENT TP SCH (10:31)
--- NOTE | 2018-02-09 11:07 | PN ---
Progress Note, Physician History of Present Illness: The patient is a 52 year old female, with a significant past medical history of PTSD, GERD, Hernia, Right sided breast CA s/p lumpectomy, who presents to the ED complaining of chest pain since last night. She describes her chest pain as a stabbing sensation, 8/10 in severity. She denies any radiation or modifying factors. She also reports a dry cough and mild chills associated with her chief complaint. She notes that she took Tylenol today around 12pm. The patient denies shortness of breath, headache and dizziness. Denies fever, nausea, vomiting, diarrhea or constipation. Allergies: None Past surgical history: Right lumpectomy, hysterectomy Social History: No alcohol, tobacco or drug use reported (Mikey Ma) - Current Medication List Current Medications: Active Medications Acetaminophen (Tylenol -) 650 mg PO Q6H PRN PRN Reason: PAIN LEVEL 1 - 3 Bacitracin (Bacitracin -) 1 applic TP BID [facility] Last Admin: 02/09/18 10:31 Dose: 1 applic Benzocaine/Menthol (Cepacol Lozenge -) 1 each MM DAILY PRN PRN Reason: SORE THROAT Heparin Sodium (Porcine) (Heparin -) 5,000 unit SQ TID [facility] Last Admin: 02/09/18 05:36 Dose: Not Given Pantoprazole Sodium (Protonix -) 40 mg PO DAILY [facility] Last Admin: 02/09/18 10:31 Dose: 40 mg - Objective Vital Signs: Vital Signs Temperature 97.9 F 02/09/18 08:37 Pulse Rate 69 02/09/18 08:37 Respiratory Rate 20 02/09/18 08:37 Blood Pressure 134/64 02/09/18 08:37 O2 Sat by Pulse Oximetry (%) 98 02/08/18 21:00 Eyes: Yes: WNL, Conjunctiva Clear, EOM Intact HENT: Yes: WNL, Atraumatic, Normocephalic Neck: Yes: WNL, Supple, Trachea Midline Cardiovascular: Yes: WNL, Regular Rate and Rhythm Respiratory: Yes: WNL, Regular, CTA Bilaterally Gastrointestinal: Yes: WNL, Normal Bowel Sounds Genitourinary: Yes: WNL Musculoskeletal: Yes: WNL Extremities: Yes: WNL Edema: No Integumentary: Yes: WNL Neurological: Yes: WNL, Alert, Oriented ...Motor Strength: WNL Psychiatric: Yes: WNL Labs: CBC, BMP 02/07/18 06:45 02/06/18 08:10 INR, PTT INR 1.12 (0.83-1.09) H 02/02/18 18:50 Problem List - Problems (1) Atelectasis Code(s): J98.11 - ATELECTASIS (2) Atypical chest pain Code(s): R07.89 - OTHER CHEST PAIN (3) Chest pain Code(s): R07.9 - CHEST PAIN, UNSPECIFIED Qualifiers: Chest pain type: unspecified Qualified Code(s): R07.9 - Chest pain, unspecified Assessment/Plan Atypical Chest Pain Bibasilar Atelectasis h/o Breast Ca GERD Hiatal Hernia r/o mi neg echo nl EST treadmill stress test negative
--- NOTE | 2018-02-09 15:55 | PN ---
Teaching Attending Note Name of Resident: Hafsa Vitale ATTENDING PHYSICIAN STATEMENT I saw and evaluated the patient. I reviewed the resident's note and discussed the case with the resident. I agree with the resident's findings and plan as documented. SUBJECTIVE: Patient rambles when speaking. She has no specific complaints. OBJECTIVE: Vital Signs Period Temp Pulse Resp BP Sys/Arroyo Pulse Ox Last 24 Hr 97.9 F-98.7 F 64-87 18-20 103-134/48-65 98 HEART: S1S2, RRR LUNGS: Clear ABDOMEN: Obese, soft, non-tender, non-distended, normal BS EXTREMITIES: No edema Current Medications Generic Name Dose Route Start Last Admin Trade Name Freq PRN Reason Stop Dose Admin Acetaminophen 650 mg 02/05/18 12:06 Tylenol - PO Q6H PRN PAIN LEVEL 1 - 3 Bacitracin 1 applic 02/05/18 14:00 02/09/18 10:31 Bacitracin - TP 1 applic BID CARLI Administration Benzocaine/Menthol 1 each 02/05/18 12:06 Cepacol Lozenge - MM DAILY PRN SORE THROAT Heparin Sodium (Porcine) 5,000 unit 02/05/18 14:00 02/09/18 14:26 Heparin - SQ Not Given TID CARLI Pantoprazole Sodium 40 mg 02/06/18 10:00 02/09/18 10:31 Protonix - PO 40 mg DAILY CARLI Administration ASSESSMENT AND PLAN: This is a 52 year old woman with a history of PTSD, GERD, breast breast cancer who presented to the ED with chest pain. 1. Chest pain - Resolved 2. Retroperitoneal mass - Plan for outpatient evaluation by Dr. Davis at [facility] - ? EUS 3. PTSD 4. Probable bipolar disorder - Patient stated she was previously diagnosed with bipolar disorder but the diagnosis was changed to PTSD 5. GERD - Contnue Protonix 6. Disposition - Patient discharged but has appealed
[2018-02-10] MEDS: BACITRACIN 15 GM TUBE TOPICAL OINTMENT TP SCH ×2 (05:10→10:12)
[2018-02-10] MEDS: HEPARIN NA (PORCINE) 5,000 UNITS/ML 1ML VIAL SQ SCH (06:00)
[2018-02-10 08:07] LABS: CARCINOEMBRYONIC ANTIGEN 7.9 ng/mL (0.0-4.7)
--- NOTE | 2018-02-10 09:25 | PN ---
Progress Note (short form) - Note Progress Note: No acute events overnight. NAD on RA. CP/SOB essentially resolved. Intake & Output 02/07/18 02/08/18 02/09/18 02/10/18 23:59 23:59 23:59 23:59 Intake Total 600 750 800 Output Total 1 Balance 599 750 800 Last Vital Signs Temp Pulse Resp BP Pulse Ox 97.8 F 62 20 109/62 96 02/10/18 06:48 02/10/18 06:48 02/10/18 06:48 02/10/18 06:48 02/09/18 21:00 Active Medications Acetaminophen (Tylenol -) 650 mg PO Q6H PRN PRN Reason: PAIN LEVEL 1 - 3 Bacitracin (Bacitracin -) 1 applic TP BID [facility] Last Admin: 02/10/18 05:10 Dose: Not Given Benzocaine/Menthol (Cepacol Lozenge -) 1 each MM DAILY PRN PRN Reason: SORE THROAT Heparin Sodium (Porcine) (Heparin -) 5,000 unit SQ TID [facility] Last Admin: 02/10/18 06:00 Dose: Not Given Pantoprazole Sodium (Protonix -) 40 mg PO DAILY [facility] Last Admin: 02/09/18 10:31 Dose: 40 mg Gen: NAD at rest Heart: RRR Lung: decreased breath sounds at the bases Abd: soft, nontender Ext: no edema Problem List - Problems (1) Atypical chest pain Code(s): R07.89 - OTHER CHEST PAIN (2) Atelectasis Code(s): J98.11 - ATELECTASIS IMP: Atypical Chest Pain Bibasilar Atelectasis likely due to splinting due to chest pain Retroperitoneal Mass h/o Breast Ca GERD Hiatal Hernia - Workup for retroperitoneal mass ongoing: Will be evaluated by Dr Davis at [facility]. - pain control - incentive spirometry - DVT prophylaxis - No Pulmonary contraindication for D/C Dr Wilson
[2018-02-10] MEDS: PANTOPRAZOLE 40 MG TABLET (FP) PO SCH (10:16)
[2018-02-10 11:11] VITALS: BP 110/50; PULSE 90; TEMP 98.3
--- NOTE | 2018-02-10 13:07 | PN ---
Physical Exam: SUBJECTIVE: Patient was discharged on 02/08/18. She elected to appeal discharge. No events overnight. No change in clinical status. She agreed to leave the hospital today. OBJECTIVE: Vital Signs Period Temp Pulse Resp BP Sys/[place] Pulse Ox Last 24 Hr 97.8 F-98.7 F 62-90 18-20 103-110/48-68 96-96 GENERAL:AAOx3. NAD. HEENT: AT/NC. Moist mucus membranes. No erythema noted in oropharynx. NECK: Normal range of motion, supple without lymphadenopathy, JVD, or masses. LUNGS:CTA B/L. No wheezes, rhonchi, rales noted. HEART: RRR. Normal S1, S2. No murmurs, rubs, or gallop noted. No reproducible chest tenderness. ABDOMEN: Soft nontender, nondistended. Normoactive bowel sounds in all 4Q's. No masses or bruits noted. UPPER EXTREMITIES: warm, well-perfused. No cyanosis. No clubbing. No peripheral edema. 5/5 muscle strength b/l. LOWER EXTREMITIES: warm, well-perfused. No calf tenderness. No peripheral edema. 5/5 muscle strength b/l. NEUROLOGICAL: Cranial nerves II-XII grossly intact. Normal speech. PSYCHIATRIC: Cooperative. Good eye contact. Appropriate mood and affect. SKIN: Warm, dry, normal turgor, no rashes or lesions noted, normal capillary refill. Laboratory Results - last 24 hr 02/09/18 07:15 Carcinoembryonic Ag 7.9 H CA 19-9 Antigen 1 Active Medications Generic Name Dose Route Start Last Admin Trade Name Sauloq PRN Reason Stop Dose Admin Acetaminophen 650 mg 02/05/18 12:06 Tylenol - PO Q6H PRN PAIN LEVEL 1 - 3 Bacitracin 1 applic 02/05/18 14:00 02/10/18 10:12 Bacitracin - TP Not Given BID CARLI Benzocaine/Menthol 1 each 02/05/18 12:06 Cepacol Lozenge - MM DAILY PRN SORE THROAT Heparin Sodium (Porcine) 5,000 unit 02/05/18 14:00 02/10/18 06:00 Heparin - SQ Not Given TID CARLI Pantoprazole Sodium 40 mg 02/06/18 10:00 02/10/18 10:16 Protonix - PO 40 mg DAILY CARLI Administration Visit type - Emergency Visit Emergency Visit: Yes ED Registration Date: 02/04/18 Care time: The patient presented to the Emergency Department on the above date and was hospitalized for further evaluation of their emergent condition. - New Patient This patient is new to me today: No - Critical Care Critical Care patient: No
== END 2018-02-10 13:09 | disposition home or self-care (01) | DRG 392 ==
LOC: JER 17:11 → JERBED 23:48 → UNDOADMOB 02-03 00:50 → J4W 02-03 02:52 → OBSVTOIN 02-04 10:09 → J8W 02-05 11:59
PROVIDERS: ADMIT Internal Medicine; ATTEND Internal Medicine
DX: K21.9 Gastro-esophageal reflux disease without esophagitis (principal); J98.11 Atelectasis; M94.0 Chondrocostal junction syndrome [Tietze]; K66.8 Other specified disorders of peritoneum; F43.10 Post-traumatic stress disorder, unspecified; K44.9 Diaphragmatic hernia without obstruction or gangrene; Z85.3 Personal history of malignant neoplasm of breast; Z59.0 Homelessness
CPT/HCPCS: 36415; 71045-TC-FY; 71275-TC; 74181-TC; 74183-TC; 76705-TC; 80048; 80053; 80061; 82378; 82550; 82607; 82746; 83036; 83690; 83721; 83735; 84100; 84443; 84481; 84484; 85025; 85027; 85610; 86301; 93005; 93010; 93017; 93018; 93306-TC; 94010; 97116-GP; 97161-GP; 99283-25; G0378; J1644